=== PATIENT | male | born 1940 | race Caucasian/White ===

== ENCOUNTER 2020-12-06 18:24 | Inpatient (IN) ==
[2020-12-06] MEDS ORDERED: methylPREDNISolone 125 MG/2 ML VIAL IVP ONE (21:10)
[2020-12-06] MEDS ORDERED: Dextrose Gel 15 GM/37.5 ML TUBE PO PRN ×2 (21:11)
[2020-12-06] MEDS ORDERED: *HR* Dextrose 50 % in Water (Vial) 50 ML VIAL IVP PRN (21:11)
[2020-12-06] MEDS ORDERED: D5% in Water 1,000 ML IVC PRN (21:11)
[2020-12-06] MEDS ORDERED: Naloxone 0.4 MG/ML INJ IVP PRN (21:13)
[2020-12-06] MEDS ORDERED: Ondansetron 4 MG/2 ML VIAL IVP PRN (21:13)
[2020-12-06] MEDS: Insulin LISPRO 300 UNITS/3 ML VIAL SUBQ SCH (21:50)
[2020-12-06] MEDS: Metoprolol XL (24 HR) Succ 50 MG TAB.ER.24H PO SCH (21:51)
[2020-12-06 22:28] LABS: Estimated Average Glucose 217 mg/dl; Hemoglobin A1C 9.2 %
[2020-12-06] MEDS: Furosemide 40 MG/4 ML VIAL IVP SCH (22:42)
[2020-12-06] MEDS: Levalbuterol Neb 1.25 MG/3 ML IH SCH (22:59)
[2020-12-07] MEDS ORDERED: Albuterol 2.5 MG/3 ML NEBULIZER IH SCH
[2020-12-07] MEDS: Ipratropium Neb 0.5 MG NEBULIZER IH SCH ×4 (03:24→22:03)
[2020-12-07] MEDS: Levalbuterol Neb 1.25 MG/3 ML IH SCH ×4 (03:24→22:03)
[2020-12-07 03:37] LABS: Basophils % 0.2 %; Hematocrit 36.7 % (37.5-50.1); Hemoglobin 11.6 g/dL (12.9-16.9); Immature Granulocytes % 0.7 % (0-4); Lymphocytes # 0.3 K/mcL (0.6-4.6); Lymphocytes % 2.1 %; Mean Corpuscular HGB Conc 31.6 g/dL (31.6-35.5); Mean Corpuscular Hemoglobin 29.1 pg (28.0-33.3); Mean Corpuscular Volume 92.2 fL (83.0-100.0); Mean Platelet Volume 10.2 fL (9.4-12.4); Monocytes # 0.2 K/mcL (0.0-1.3); Monocytes % 1.2 %; Neutrophils # 14.3 K/mcL (1.6-8.9); Platelet Count 315 K/mcL (140-400); Red Blood Count 3.98 M/mcL (4.19-5.50); Red Cell Distribution Width 15.4 % (11.5-14.5); Segmented Neutrophils % 95.8 %; White Blood Count 14.9 K/mcL (4.3-11.1)
[2020-12-07 03:51] LABS: Alanine Aminotransferase 16 Units/L (7-52); Albumin 3.8 g/dL (3.5-5.7); Albumin/Globulin Ratio 1.4 (1.1-2.2); Alkaline Phosphatase 91 Units/L (34-104); Aspartate Amino Transferase 12 Units/L (13-39); BUN/Creatinine Ratio 25 (6-26); Bilirubin,Total 0.5 mg/dL (0.3-1.0); Blood Urea Nitrogen 29 mg/dL (8-23); Calcium 8.9 mg/dL (8.6-10.3); Carbon Dioxide 27 mEq/L (23-29); Chloride 104 mEq/L (98-107); Globulin 2.7 g/dL (2.4-3.5); Glucose 281 mg/dL (70-105); Osmolality,Calculated 308 (280-300); Potassium 4.3 mEq/L (3.5-5.1); Sodium 141 mEq/L (136-145); Total Protein 6.5 g/dL (6.4-8.9); eGFR For African Americans > 60 (> 60); eGFR For Non-African Americans > 60 (> 60)
[2020-12-07] MEDS: *HR* Heparin 5,000 UNIT/ML VIAL SQ SCH ×2 (04:45→17:02)
[2020-12-07] MEDS: Azithromycin 250 MG TABLET PO SCH (08:05)
[2020-12-07] MEDS: lisinopriL 20 MG TABLET PO SCH (08:06)
[2020-12-07] MEDS: Metoprolol XL (24 HR) Succ 50 MG TAB.ER.24H PO SCH ×2 (08:06→21:24)
[2020-12-07] MEDS: Furosemide 40 MG/4 ML VIAL IVP SCH ×2 (08:06→17:02)
[2020-12-07] MEDS: predniSONE 20 MG TABLET PO SCH (08:06)
[2020-12-07] MEDS: *HR* Digoxin 0.125 MG TABLET PO SCH (08:06)
[2020-12-07] MEDS: Insulin LISPRO 300 UNITS/3 ML VIAL SUBQ SCH ×4 (08:07→21:24)
[2020-12-07] MEDS ORDERED: BuPROPion XL (24 HR) 150 MG TABLET PO SCH (09:00)
[2020-12-08 01:59] LABS: BUN/Creatinine Ratio 33 (6-26); Blood Urea Nitrogen 41 mg/dL (8-23); Calcium 8.4 mg/dL (8.6-10.3); Carbon Dioxide 28 mEq/L (23-29); Chloride 102 mEq/L (98-107); Glucose 366 mg/dL (70-105); Magnesium 1.8 mg/dL (1.6-2.6); Osmolality,Calculated 309 (280-300); Sodium 137 mEq/L (136-145); eGFR For African Americans > 60 (> 60); eGFR For Non-African Americans 57 (> 60)
[2020-12-08] MEDS: Ipratropium Neb 0.5 MG NEBULIZER IH SCH ×4 (04:13→21:15)
[2020-12-08] MEDS: Levalbuterol Neb 1.25 MG/3 ML IH SCH ×4 (04:13→21:16)
[2020-12-08] MEDS: *HR* Heparin 5,000 UNIT/ML VIAL SQ SCH (05:28)
[2020-12-08] MEDS: Furosemide 40 MG/4 ML VIAL IVP SCH ×2 (08:36→16:55)
[2020-12-08] MEDS: Azithromycin 250 MG TABLET PO SCH (08:36)
[2020-12-08] MEDS: predniSONE 20 MG TABLET PO SCH (08:36)
[2020-12-08] MEDS: Metoprolol XL (24 HR) Succ 50 MG TAB.ER.24H PO SCH (08:36)
[2020-12-08] MEDS: lisinopriL 20 MG TABLET PO SCH (08:36)
[2020-12-08] MEDS: *HR* Digoxin 0.125 MG TABLET PO SCH (08:36)
[2020-12-08] MEDS: Insulin LISPRO 300 UNITS/3 ML VIAL SUBQ SCH ×4 (08:37→21:49)
[2020-12-08 09:35] LABS: Basophils % 0.1 %; Eosinophils % 0.1 %; Hematocrit 38.3 % (37.5-50.1); Hemoglobin 11.7 g/dL (12.9-16.9); Immature Granulocytes % 0.5 % (0-4); Lymphocytes # 0.9 K/mcL (0.6-4.6); Lymphocytes % 5.1 %; Mean Corpuscular HGB Conc 30.5 g/dL (31.6-35.5); Mean Corpuscular Hemoglobin 28.7 pg (28.0-33.3); Mean Corpuscular Volume 93.9 fL (83.0-100.0); Mean Platelet Volume 10.4 fL (9.4-12.4); Monocytes # 1.4 K/mcL (0.0-1.3); Monocytes % 7.7 %; Neutrophils # 15.1 K/mcL (1.6-8.9); Platelet Count 336 K/mcL (140-400); Red Blood Count 4.08 M/mcL (4.19-5.50); Red Cell Distribution Width 15.6 % (11.5-14.5); Segmented Neutrophils % 86.5 %; White Blood Count 17.5 K/mcL (4.3-11.1)
[2020-12-08] MEDS: DilTIAZem CD (24hr) 180 MG CAP.ER.24H PO SCH (14:56)
[2020-12-08] MEDS ORDERED: Metoprolol XL (24 HR) Succ 50 MG TAB.ER.24H PO SCH (21:00)
[2020-12-08] MEDS: Melatonin 3 MG TABLET PO SCH (21:45)
[2020-12-08] MEDS: Carbidopa/Levodopa ER 50/200 TABLET PO SCH (21:46)
[2020-12-08] MEDS: Insulin DETEMIR 100 UNIT/ML X5UNITS SUBQ SCH (21:49)
[2020-12-09 03:13] LABS: Basophils % 0.1 %; Eosinophils % 0.1 %; Hematocrit 37.5 % (37.5-50.1); Hemoglobin 11.6 g/dL (12.9-16.9); Immature Granulocytes % 0.6 % (0-4); Lymphocytes # 1.1 K/mcL (0.6-4.6); Lymphocytes % 6.8 %; Mean Corpuscular HGB Conc 30.9 g/dL (31.6-35.5); Mean Corpuscular Volume 93.8 fL (83.0-100.0); Mean Platelet Volume 10.5 fL (9.4-12.4); Monocytes # 1.5 K/mcL (0.0-1.3); Monocytes % 9.7 %; Neutrophils # 12.9 K/mcL (1.6-8.9); Platelet Count 322 K/mcL (140-400); Red Cell Distribution Width 15.4 % (11.5-14.5); Segmented Neutrophils % 82.7 %; White Blood Count 15.6 K/mcL (4.3-11.1)
[2020-12-09 03:38] LABS: Calcium 8.6 mg/dL (8.6-10.3); Potassium 4.1 mEq/L (3.5-5.1)
[2020-12-09] MEDS: Levalbuterol Neb 1.25 MG/3 ML IH SCH ×4 (03:49→20:07)
[2020-12-09] MEDS: Ipratropium Neb 0.5 MG NEBULIZER IH SCH ×5 (03:49→22:53)
[2020-12-09] MEDS: Insulin LISPRO 300 UNITS/3 ML VIAL SUBQ SCH ×4 (08:03→23:16)
[2020-12-09] MEDS: Furosemide 40 MG TABLET PO SCH ×2 (08:04→16:42)
[2020-12-09] MEDS ORDERED: *HR* Rivaroxaban 10 MG TABLET PO SCH (09:00)
[2020-12-09] MEDS ORDERED: Metoprolol XL (24 HR) Succ 50 MG TAB.ER.24H PO SCH (09:00)
[2020-12-09] MEDS: FLUoxetine 20 MG CAPSULE PO SCH (10:28)
[2020-12-09] MEDS: Carbidopa/Levodopa ER 50/200 TABLET PO SCH ×2 (10:29→23:16)
[2020-12-09] MEDS: predniSONE 20 MG TABLET PO SCH (10:29)
[2020-12-09] MEDS: Azithromycin 250 MG TABLET PO SCH (10:29)
[2020-12-09] MEDS: lisinopriL 20 MG TABLET PO SCH (10:29)
[2020-12-09] MEDS: Cholecalciferol (D-3) 1,000 UNIT (25MCG) TABLET PO SCH (10:29)
[2020-12-09] MEDS: DilTIAZem CD (24hr) 180 MG CAP.ER.24H PO SCH (10:31)
[2020-12-09] MEDS: *HR* Digoxin 0.125 MG TABLET PO SCH (10:31)
[2020-12-09] MEDS: Metoprolol XL (24 HR) Succ 50 MG TAB.ER.24H PO SCH (23:15)
[2020-12-09] MEDS: Insulin DETEMIR 100 UNIT/ML X5UNITS SUBQ SCH (23:16)
[2020-12-09] MEDS: Melatonin 3 MG TABLET PO SCH (23:19)
[2020-12-10] MEDS: Ipratropium Neb 0.5 MG NEBULIZER IH SCH ×3 (03:56→11:34)
[2020-12-10] MEDS: Levalbuterol Neb 1.25 MG/3 ML IH SCH ×2 (03:56→11:34)
[2020-12-10 06:01] LABS: Basophils % 0.2 %; Eosinophils # 0.1 K/mcL (0.0-0.6); Eosinophils % 0.5 %; Hematocrit 34.5 % (37.5-50.1); Hemoglobin 10.7 g/dL (12.9-16.9); Immature Granulocytes % 0.6 % (0-4); Lymphocytes # 0.9 K/mcL (0.6-4.6); Lymphocytes % 7.2 %; Mean Corpuscular Hemoglobin 28.5 pg (28.0-33.3); Mean Corpuscular Volume 91.8 fL (83.0-100.0); Mean Platelet Volume 10.1 fL (9.4-12.4); Monocytes # 1.3 K/mcL (0.0-1.3); Monocytes % 10.2 %; Neutrophils # 10.6 K/mcL (1.6-8.9); Platelet Count 279 K/mcL (140-400); Red Blood Count 3.76 M/mcL (4.19-5.50); Red Cell Distribution Width 15.1 % (11.5-14.5); Segmented Neutrophils % 81.3 %
[2020-12-10 06:16] LABS: BUN/Creatinine Ratio 38 (6-26); Blood Urea Nitrogen 41 mg/dL (8-23); Calcium 8.3 mg/dL (8.6-10.3); Carbon Dioxide 31 mEq/L (23-29); Chloride 103 mEq/L (98-107); Glucose 241 mg/dL (70-105); Osmolality,Calculated 304 (280-300); Potassium 3.8 mEq/L (3.5-5.1); Sodium 138 mEq/L (136-145); eGFR For African Americans > 60 (> 60); eGFR For Non-African Americans > 60 (> 60)
[2020-12-10] MEDS: Azithromycin 250 MG TABLET PO SCH (08:45)
[2020-12-10] MEDS: Furosemide 40 MG TABLET PO SCH (08:45)
[2020-12-10] MEDS: lisinopriL 20 MG TABLET PO SCH (08:45)
[2020-12-10] MEDS: *HR* Digoxin 0.125 MG TABLET PO SCH (08:45)
[2020-12-10] MEDS: FLUoxetine 20 MG CAPSULE PO SCH (08:46)
[2020-12-10] MEDS: Metoprolol XL (24 HR) Succ 50 MG TAB.ER.24H PO SCH (08:46)
[2020-12-10] MEDS: DilTIAZem CD (24hr) 180 MG CAP.ER.24H PO SCH (08:46)
[2020-12-10] MEDS: predniSONE 20 MG TABLET PO SCH (08:46)
[2020-12-10] MEDS: Insulin LISPRO 300 UNITS/3 ML VIAL SUBQ SCH ×2 (08:46→11:45)
[2020-12-10] MEDS: Cholecalciferol (D-3) 1,000 UNIT (25MCG) TABLET PO SCH (08:46)
[2020-12-10] MEDS: Carbidopa/Levodopa ER 50/200 TABLET PO SCH (08:46)
[2020-12-10 11:03] VITALS: BP 141/88
[2020-12-10] MEDS ORDERED: *HR* Rivaroxaban 10 MG TABLET PO SCH (17:00)
== END 2020-12-10 14:23 | disposition home or self-care (01) | DRG 291 ==
LOC: 2ANU → SUATTDRO 19:42
PROVIDERS: ADMIT Internal Medicine; ATTEND Family Medicine

== ENCOUNTER 2021-11-19 06:24 | Inpatient (IN) ==
[2021-11-19] MEDS ORDERED: Naloxone 0.4 MG/ML INJ IVP PRN (12:08)
[2021-11-19] MEDS: Furosemide 40 MG/4 ML VIAL IVP SCH (13:00)
[2021-11-19] MEDS: DilTIAZem 50 MG/50 ML IV.SOLN IVC SCH ×2 (13:00→22:22)
[2021-11-19] MEDS ORDERED: Melatonin 3 MG TABLET PO PRN (14:18)
[2021-11-19] MEDS: DilTIAZem CD (24hr) 180 MG CAP.ER.24H PO SCH (14:33)
[2021-11-19] MEDS: Metoprolol XL (24 HR) Succ 50 MG TAB.ER.24H PO SCH ×3 (14:33→23:34)
[2021-11-19] MEDS: FLUoxetine 20 MG CAPSULE PO SCH (14:33)
[2021-11-19] MEDS: Insulin LISPRO 300 UNITS/3 ML VIAL SUBQ SCH ×2 (15:59→21:26)
[2021-11-19] MEDS: *HR* Rivaroxaban 10 MG TABLET PO SCH (15:59)
[2021-11-19] MEDS: Ipratropium/Albuterol Neb 3 ML IH SCH ×2 (16:10→19:42)
[2021-11-19] MEDS: Carbidopa/Levodopa ER 50/200 TABLET PO SCH (21:25)
[2021-11-20 03:02] LABS: Basophils # 0.1 K/mcL (0.0-0.2); Basophils % 0.3 %; Eosinophils # 0.2 K/mcL (0.0-0.6); Eosinophils % 1.5 %; Hematocrit 29.8 % (37.5-50.1); Hemoglobin 9.6 g/dL (12.9-16.9); Immature Granulocytes % 0.4 % (0-4); Lymphocytes # 0.8 K/mcL (0.6-4.6); Lymphocytes % 4.8 %; Mean Corpuscular HGB Conc 32.2 g/dL (31.6-35.5); Mean Corpuscular Hemoglobin 30.1 pg (28.0-33.3); Mean Corpuscular Volume 93.4 fL (83.0-100.0); Mean Platelet Volume 9.8 fL (9.4-12.4); Monocytes # 1.8 K/mcL (0.0-1.3); Monocytes % 11.6 %; Neutrophils # 12.9 K/mcL (1.6-8.9); Platelet Count 311 K/mcL (140-400); Red Blood Count 3.19 M/mcL (4.19-5.50); Red Cell Distribution Width 15.2 % (11.5-14.5); Segmented Neutrophils % 81.4 %; White Blood Count 15.9 K/mcL (4.3-11.1)
[2021-11-20 03:20] LABS: Calcium 8.5 mg/dL (8.6-10.3); Potassium 4.1 mEq/L (3.5-5.1)
[2021-11-20] MEDS: Ipratropium/Albuterol Neb 3 ML IH SCH ×4 (03:25→20:16)
[2021-11-20] MEDS: Azithromycin 500 MG in 0.9 % Sodium Chloride 250 ML IVPB SCH (04:38)
[2021-11-20] MEDS: cefTRIAXone 2,000 MG in 0.9 % Sodium Chloride 20 ML IVP SCH (04:39)
[2021-11-20] MEDS ORDERED: 0.9 % Sodium Chloride 250 ML IVC ONE (07:38)
[2021-11-20] MEDS: Insulin LISPRO 300 UNITS/3 ML VIAL SUBQ SCH ×4 (07:44→20:33)
[2021-11-20] MEDS: DilTIAZem CD (24hr) 180 MG CAP.ER.24H PO SCH (07:56)
[2021-11-20] MEDS: Metoprolol XL (24 HR) Succ 50 MG TAB.ER.24H PO SCH ×2 (07:56→20:34)
[2021-11-20] MEDS: Carbidopa/Levodopa ER 50/200 TABLET PO SCH ×2 (07:56→20:34)
[2021-11-20] MEDS: FLUoxetine 20 MG CAPSULE PO SCH (07:56)
[2021-11-20] MEDS: Insulin DETEMIR 100 UNIT/ML X5UNITS SUBQ SCH (07:56)
[2021-11-20] MEDS: BuPROPion XL (24 HR) 150 MG TABLET PO SCH (07:56)
[2021-11-20] MEDS: Furosemide 40 MG/4 ML VIAL IVP SCH (07:57)
[2021-11-20] MEDS: Budesonide/Formoterol 160/4.5 1 PUFF INH IH SCH ×2 (10:14→20:16)
[2021-11-20] MEDS: *HR* Rivaroxaban 10 MG TABLET PO SCH (15:57)
[2021-11-21 02:35] LABS: Basophils # 0.1 K/mcL (0.0-0.2); Basophils % 0.4 %; Eosinophils # 0.5 K/mcL (0.0-0.6); Eosinophils % 3.2 %; Hematocrit 29.6 % (37.5-50.1); Hemoglobin 9.5 g/dL (12.9-16.9); Immature Granulocytes % 0.5 % (0-4); Lymphocytes # 0.8 K/mcL (0.6-4.6); Lymphocytes % 4.8 %; Mean Corpuscular HGB Conc 32.1 g/dL (31.6-35.5); Mean Corpuscular Hemoglobin 30.1 pg (28.0-33.3); Mean Corpuscular Volume 93.7 fL (83.0-100.0); Mean Platelet Volume 10.1 fL (9.4-12.4); Monocytes # 1.6 K/mcL (0.0-1.3); Monocytes % 9.8 %; Neutrophils # 13.3 K/mcL (1.6-8.9); Platelet Count 337 K/mcL (140-400); Red Blood Count 3.16 M/mcL (4.19-5.50); Red Cell Distribution Width 14.9 % (11.5-14.5); Segmented Neutrophils % 81.3 %; White Blood Count 16.4 K/mcL (4.3-11.1)
[2021-11-21 02:55] LABS: Calcium 8.4 mg/dL (8.6-10.3); Potassium 3.9 mEq/L (3.5-5.1)
[2021-11-21] MEDS: Ipratropium/Albuterol Neb 3 ML IH SCH ×4 (04:11→20:17)
[2021-11-21] MEDS: cefTRIAXone 2,000 MG in 0.9 % Sodium Chloride 20 ML IVP SCH (06:41)
[2021-11-21] MEDS: Azithromycin 500 MG in 0.9 % Sodium Chloride 250 ML IVPB SCH (06:43)
[2021-11-21] MEDS: Budesonide/Formoterol 160/4.5 1 PUFF INH IH SCH ×2 (07:51→20:17)
[2021-11-21] MEDS: Insulin DETEMIR 100 UNIT/ML X5UNITS SUBQ SCH (08:25)
[2021-11-21] MEDS: Metoprolol XL (24 HR) Succ 50 MG TAB.ER.24H PO SCH ×2 (08:26→20:12)
[2021-11-21] MEDS: BuPROPion XL (24 HR) 150 MG TABLET PO SCH (08:26)
[2021-11-21] MEDS: FLUoxetine 20 MG CAPSULE PO SCH (08:26)
[2021-11-21] MEDS: DilTIAZem CD (24hr) 180 MG CAP.ER.24H PO SCH (08:26)
[2021-11-21] MEDS: Insulin LISPRO 300 UNITS/3 ML VIAL SUBQ SCH ×4 (08:27→20:15)
[2021-11-21] MEDS: Carbidopa/Levodopa ER 50/200 TABLET PO SCH ×2 (08:27→20:11)
[2021-11-21] MEDS: Furosemide 40 MG/4 ML VIAL IVP SCH (08:45)
[2021-11-21] MEDS ORDERED: Budesonide/Formoterol 160/4.5 1 PUFF INH IH PRN (10:55)
[2021-11-21] MEDS: predniSONE 20 MG TABLET PO SCH (11:54)
[2021-11-21] MEDS: DilTIAZem 50 MG/50 ML IV.SOLN IVC SCH (11:55)
[2021-11-21] MEDS ORDERED: Perflutren Lipid Microsphere 1.3 ML in 0.9 % Sodium Chloride 8.7 ML IVP PRN (14:05)
[2021-11-21] MEDS: *HR* Rivaroxaban 10 MG TABLET PO SCH (16:40)
[2021-11-22 01:04] LABS: Basophils % 0.1 %; Eosinophils % 0.1 %; Hematocrit 28.1 % (37.5-50.1); Hemoglobin 9.2 g/dL (12.9-16.9); Immature Granulocytes % 0.8 % (0-4); Lymphocytes # 0.5 K/mcL (0.6-4.6); Lymphocytes % 3.3 %; Mean Corpuscular HGB Conc 32.7 g/dL (31.6-35.5); Mean Corpuscular Hemoglobin 30.4 pg (28.0-33.3); Mean Corpuscular Volume 92.7 fL (83.0-100.0); Monocytes % 7.4 %; Neutrophils # 11.9 K/mcL (1.6-8.9); Platelet Count 355 K/mcL (140-400); Red Blood Count 3.03 M/mcL (4.19-5.50); Red Cell Distribution Width 14.7 % (11.5-14.5); Segmented Neutrophils % 88.3 %; White Blood Count 13.5 K/mcL (4.3-11.1)
[2021-11-22 01:22] LABS: Calcium 8.7 mg/dL (8.6-10.3); Potassium 4.4 mEq/L (3.5-5.1)
[2021-11-22] MEDS: Ipratropium/Albuterol Neb 3 ML IH SCH ×4 (03:41→20:11)
[2021-11-22] MEDS: cefTRIAXone 2,000 MG in 0.9 % Sodium Chloride 20 ML IVP SCH (04:42)
[2021-11-22] MEDS: Azithromycin 500 MG in 0.9 % Sodium Chloride 250 ML IVPB SCH (04:43)
[2021-11-22] MEDS: Carbidopa/Levodopa ER 50/200 TABLET PO SCH ×2 (08:00→20:12)
[2021-11-22] MEDS: Furosemide 40 MG/4 ML VIAL IVP SCH (08:00)
[2021-11-22] MEDS: BuPROPion XL (24 HR) 150 MG TABLET PO SCH (08:00)
[2021-11-22] MEDS: DilTIAZem CD (24hr) 180 MG CAP.ER.24H PO SCH (08:00)
[2021-11-22] MEDS: FLUoxetine 20 MG CAPSULE PO SCH (08:00)
[2021-11-22] MEDS: predniSONE 20 MG TABLET PO SCH (08:00)
[2021-11-22] MEDS: Insulin LISPRO 300 UNITS/3 ML VIAL SUBQ SCH ×4 (08:01→20:11)
[2021-11-22] MEDS: Insulin DETEMIR 100 UNIT/ML X5UNITS SUBQ SCH (08:03)
[2021-11-22] MEDS: Metoprolol XL (24 HR) Succ 50 MG TAB.ER.24H PO SCH ×2 (09:50→20:12)
[2021-11-22] MEDS: Budesonide/Formoterol 160/4.5 1 PUFF INH IH SCH ×2 (10:39→20:11)
[2021-11-22] MEDS: *HR* Rivaroxaban 10 MG TABLET PO SCH (16:16)
[2021-11-23] MEDS: Ipratropium/Albuterol Neb 3 ML IH SCH ×4 (04:08→20:30)
[2021-11-23] MEDS: Azithromycin 500 MG in 0.9 % Sodium Chloride 250 ML IVPB SCH (04:38)
[2021-11-23] MEDS: cefTRIAXone 2,000 MG in 0.9 % Sodium Chloride 20 ML IVP SCH (04:39)
[2021-11-23] MEDS: DilTIAZem CD (24hr) 180 MG CAP.ER.24H PO SCH (08:22)
[2021-11-23] MEDS: FLUoxetine 20 MG CAPSULE PO SCH (08:22)
[2021-11-23] MEDS: Metoprolol XL (24 HR) Succ 50 MG TAB.ER.24H PO SCH ×2 (08:22→20:51)
[2021-11-23] MEDS: Furosemide 40 MG/4 ML VIAL IVP SCH (08:22)
[2021-11-23] MEDS: Carbidopa/Levodopa ER 50/200 TABLET PO SCH ×2 (08:23→20:51)
[2021-11-23] MEDS: BuPROPion XL (24 HR) 150 MG TABLET PO SCH (08:23)
[2021-11-23] MEDS: Insulin DETEMIR 100 UNIT/ML X5UNITS SUBQ SCH (08:23)
[2021-11-23] MEDS: predniSONE 20 MG TABLET PO SCH (08:23)
[2021-11-23] MEDS: Insulin LISPRO 300 UNITS/3 ML VIAL SUBQ SCH ×4 (08:24→20:52)
[2021-11-23] MEDS: Budesonide/Formoterol 160/4.5 1 PUFF INH IH SCH ×2 (09:41→20:30)
[2021-11-23] MEDS: *HR* Rivaroxaban 10 MG TABLET PO SCH (16:44)
[2021-11-24] MEDS: Ipratropium/Albuterol Neb 3 ML IH SCH ×2 (04:10→10:22)
[2021-11-24] MEDS: Azithromycin 500 MG in 0.9 % Sodium Chloride 250 ML IVPB SCH (05:03)
[2021-11-24] MEDS: cefTRIAXone 2,000 MG in 0.9 % Sodium Chloride 20 ML IVP SCH (05:03)
[2021-11-24] MEDS: Insulin LISPRO 300 UNITS/3 ML VIAL SUBQ SCH ×2 (07:40→11:45)
[2021-11-24 08:05] LABS: BUN/Creatinine Ratio 24 (6-26); Blood Urea Nitrogen 32 mg/dL (8-23); Calcium 8.7 mg/dL (8.6-10.3); Carbon Dioxide 29 mEq/L (23-29); Chloride 105 mEq/L (98-107); Glucose 117 mg/dL (70-105); Osmolality,Calculated 300 (280-300); Potassium 3.9 mEq/L (3.5-5.1); Sodium 141 mEq/L (136-145); eGFR For African Americans > 60 (> 60); eGFR For Non-African Americans 51 (> 60)
[2021-11-24] MEDS: Metoprolol XL (24 HR) Succ 50 MG TAB.ER.24H PO SCH (08:16)
[2021-11-24] MEDS: DilTIAZem CD (24hr) 180 MG CAP.ER.24H PO SCH (08:16)
[2021-11-24] MEDS: BuPROPion XL (24 HR) 150 MG TABLET PO SCH (08:16)
[2021-11-24] MEDS: Carbidopa/Levodopa ER 50/200 TABLET PO SCH (08:16)
[2021-11-24] MEDS: predniSONE 20 MG TABLET PO SCH (08:16)
[2021-11-24] MEDS: FLUoxetine 20 MG CAPSULE PO SCH (08:16)
[2021-11-24] MEDS: Furosemide 40 MG/4 ML VIAL IVP SCH (08:16)
[2021-11-24 08:54] LABS: Mean Platelet Volume 10.2 fL (9.4-12.4); Red Cell Distribution Width 14.7 % (11.5-14.5)
[2021-11-24 08:57] LABS: Basophils % 0.2 %; Eosinophils # 0.2 K/mcL (0.0-0.6); Hemoglobin 9.5 g/dL (12.9-16.9); Immature Granulocytes % 0.7 % (0-4); Lymphocytes % 5.2 %; Mean Corpuscular HGB Conc 31.7 g/dL (31.6-35.5); Mean Corpuscular Hemoglobin 29.9 pg (28.0-33.3); Mean Corpuscular Volume 94.3 fL (83.0-100.0); Monocytes # 2.1 K/mcL (0.0-1.3); Monocytes % 10.9 %; Neutrophils # 15.8 K/mcL (1.6-8.9); Platelet Count 385 K/mcL (140-400); Red Blood Count 3.18 M/mcL (4.19-5.50); White Blood Count 19.3 K/mcL (4.3-11.1)
[2021-11-24 09:17] VITALS: O2SAT 93
[2021-11-24] MEDS: Insulin DETEMIR 100 UNIT/ML X5UNITS SUBQ SCH (09:17)
[2021-11-24] MEDS: Budesonide/Formoterol 160/4.5 1 PUFF INH IH SCH (10:23)
[2021-11-24 11:13] VITALS: BP 138/90; PULSE 105; TEMP 97.6
== END 2021-11-24 15:29 | disposition home or self-care (01) | DRG 871 ==
LOC: 2NENU → SUATTDRO 12:44
PROVIDERS: ADMIT Family Medicine; ATTEND Internal Medicine

== ENCOUNTER 2022-02-24 17:44 | Inpatient (IN) ==
[2022-02-24 19:22] LABS: Basophils % 0.2 %; Eosinophils # 0.2 K/mcL (0.0-0.6); Eosinophils % 1.8 %; Hematocrit 32.7 % (37.5-50.1); Hemoglobin 10.1 g/dL (12.9-16.9); Immature Granulocytes % 0.3 % (0-4); Lymphocytes % 8.3 %; Mean Corpuscular HGB Conc 30.9 g/dL (31.6-35.5); Mean Corpuscular Hemoglobin 28.2 pg (28.0-33.3); Mean Corpuscular Volume 91.3 fL (83.0-100.0); Monocytes # 1.4 K/mcL (0.0-1.3); Monocytes % 10.7 %; Neutrophils # 9.9 K/mcL (1.6-8.9); Platelet Count 399 K/mcL (140-400); Red Blood Count 3.58 M/mcL (4.19-5.50); Red Cell Distribution Width 14.1 % (11.5-14.5); Segmented Neutrophils % 78.7 %; White Blood Count 12.6 K/mcL (4.3-11.1)
[2022-02-24 19:30] LABS: Albumin 3.4 g/dL (3.5-5.7); Albumin/Globulin Ratio 1.3 (1.1-2.2); Bilirubin,Direct 0.1 mg/dL (0.0-0.2); Bilirubin,Indirect 0.4 mg/dL (0.0-1.0); Bilirubin,Total 0.5 mg/dL (0.3-1.0); Globulin 2.7 g/dL (2.4-3.5); Total Protein 6.1 g/dL (6.4-8.9)
[2022-02-24 20:10] LABS: Influenza A PCR Negative (Negative); Influenza B PCR Negative (Negative); Resp. Syncytial Virus PCR Negative (Negative)
[2022-02-24] MEDS ORDERED: cefTRIAXone 1,000 MG in 0.9 % Sodium Chloride Mini Bag 100 ML IVPB ONE (20:22)
[2022-02-24 21:26] LABS: SARS-CoV-2 by PCR (In House) Negative (Negative)
[2022-02-24] MEDS ORDERED: Naloxone 0.4 MG/ML INJ IVP PRN (22:30)
[2022-02-24] MEDS ORDERED: *HR* OxyCODONE Immed Rel 5 MG TABLET PO PRN (22:49)
[2022-02-24] MEDS ORDERED: Acetaminophen 325 MG TABLET PO PRN (22:49)
[2022-02-24] MEDS ORDERED: Melatonin 3 MG TABLET PO PRN (22:49)
[2022-02-24] MEDS ORDERED: *HR* HYDROcodone/Acet 5/325 mg TABLET PO PRN (22:49)
[2022-02-24] MEDS ORDERED: Ondansetron 4 MG/2 ML VIAL IVP PRN (22:49)
[2022-02-24 22:52] LABS: INR 1.6; Prothrombin Time 17.3 Seconds (9.4-12.1)
[2022-02-24 22:54] LABS: Activated Partial Thrombo Time 31.6 Seconds (26.0-36.0)
[2022-02-24] MEDS ORDERED: Ipratropium/Albuterol Neb 3 ML IH PRN (23:02)
[2022-02-24 23:03] LABS: Bilirubin,Urine Negative (Negative); Blood,Urine Negative (Negative); Calcium Oxalate Crystals,Urine Present per hpf; Clarity,Urine Clear (Clear); Color,Urine Yellow (Yellow); Glucose,Urine (UA) Normal (Normal); Hyaline Casts,Urine Few per lpf (None Seen); Ketones,Urine Negative (Negative); Leukocyte Esterase,Urine Negative (Negative); Nitrite,Urine Negative (Negative); PH,Urine 6.5 pH Units (5.0-8.0); Protein,Urine 30 mg/dL (Neg-Trace); RBC,Urine 0-3 per hpf (0-3); Specific Gravity,Urine 1.025 (1.010-1.025); Urobilinogen,Urine Normal (Normal); WBC,Urine 0-3 per hpf (0-3)
[2022-02-24 23:18] LABS: Adenovirus Not Detected (Not Detect); Bordetella Pertussis Not Detected (Not Detect); Chlamydophila pneumoniae Not Detected (Not Detect); Coronavirus 229E Not Detected (Not Detect); Coronavirus HKU1 Not Detected (Not Detect); Coronavirus NL63 Not Detected (Not Detect); Coronavirus OC43 Not Detected (Not Detect); Human Metapneumovirus Not Detected (Not Detect); Human Rhinovirus/Enterovirus Not Detected (Not Detect); Influenza A Subtype 2009 H1 Not Detected (Not Detect); Influenza B Not Detected (Not Detect); Mycoplasma pneumoniae Not Detected (Not Detect); Parainfluenza Virus 1 Not Detected (Not Detect); Parainfluenza Virus 2 Not Detected (Not Detect); Parainfluenza Virus 3 Not Detected (Not Detect); Parainfluenza Virus 4 Not Detected (Not Detect); Respiratory Syncytial Virus Not Detected (Not Detect); SARS-CoV-2 Not Detected (Not Detect)
[2022-02-24] MEDS: Azithromycin 500 MG in 0.9 % Sodium Chloride 250 ML IVPB SCH (23:44)
[2022-02-24] MEDS: Cefepime HCl 2,000 MG in 0.9 % Sodium Chloride 10 ML IVP SCH (23:44)
[2022-02-25 02:13] LABS: Basophils % 0.3 %; Eosinophils # 0.4 K/mcL (0.0-0.6); Hematocrit 33.5 % (37.5-50.1); Hemoglobin 10.3 g/dL (12.9-16.9); Immature Granulocytes % 0.4 % (0-4); Lymphocytes # 1.2 K/mcL (0.6-4.6); Lymphocytes % 9.9 %; Mean Corpuscular HGB Conc 30.7 g/dL (31.6-35.5); Mean Corpuscular Hemoglobin 28.5 pg (28.0-33.3); Mean Corpuscular Volume 92.8 fL (83.0-100.0); Monocytes # 1.2 K/mcL (0.0-1.3); Monocytes % 10.3 %; Platelet Count 373 K/mcL (140-400); Red Blood Count 3.61 M/mcL (4.19-5.50); Segmented Neutrophils % 76.1 %; White Blood Count 11.9 K/mcL (4.3-11.1)
[2022-02-25 02:35] LABS: Calcium 8.5 mg/dL (8.6-10.3); Potassium 3.8 mEq/L (3.5-5.1)
[2022-02-25] MEDS ORDERED: Furosemide 40 MG/4 ML VIAL IVP SCH (08:00)
[2022-02-25] MEDS ORDERED: *HR* Dextrose 50 % in Water (Syg) 50 ML SYRINGE IVP PRN (08:39)
[2022-02-25] MEDS ORDERED: Dextrose Gel 15 GM/37.5 ML TUBE PO PRN ×2 (08:39)
[2022-02-25] MEDS ORDERED: D5% in Water 1,000 ML IVC PRN (08:39)
[2022-02-25] MEDS: Furosemide 40 MG/4 ML VIAL IVP SCH (08:55)
[2022-02-25] MEDS: Insulin LISPRO 300 UNITS/3 ML VIAL SUBQ SCH ×2 (11:57→16:31)
[2022-02-25] MEDS: Cefepime HCl 2,000 MG in 0.9 % Sodium Chloride 10 ML IVP SCH ×2 (11:57→23:05)
[2022-02-25] MEDS: DilTIAZem CD (24hr) 180 MG CAP.ER.24H PO SCH (14:12)
[2022-02-25] MEDS: Metoprolol XL (24 HR) Succ 50 MG TAB.ER.24H PO SCH ×2 (14:12→20:05)
[2022-02-25] MEDS: Carbidopa/Levodopa ER 50/200 TABLET PO SCH (20:05)
[2022-02-25] MEDS: Insulin DETEMIR 100 UNIT/ML X5UNITS SUBQ SCH (20:13)
[2022-02-25] MEDS: Azithromycin 500 MG in 0.9 % Sodium Chloride 250 ML IVPB SCH (23:06)
[2022-02-25] MEDS: *HR* Heparin 5,000 UNIT/ML VIAL SQ SCH (23:06)
[2022-02-26 02:35] LABS: Basophils # 0.1 K/mcL (0.0-0.2); Basophils % 0.4 %; Eosinophils # 0.4 K/mcL (0.0-0.6); Eosinophils % 3.5 %; Hematocrit 30.8 % (37.5-50.1); Hemoglobin 9.7 g/dL (12.9-16.9); Immature Granulocytes % 0.4 % (0-4); Lymphocytes # 1.4 K/mcL (0.6-4.6); Lymphocytes % 11.9 %; Mean Corpuscular HGB Conc 31.5 g/dL (31.6-35.5); Mean Corpuscular Hemoglobin 28.9 pg (28.0-33.3); Mean Corpuscular Volume 91.7 fL (83.0-100.0); Mean Platelet Volume 9.6 fL (9.4-12.4); Monocytes # 1.4 K/mcL (0.0-1.3); Monocytes % 11.9 %; Neutrophils # 8.2 K/mcL (1.6-8.9); Platelet Count 357 K/mcL (140-400); Red Blood Count 3.36 M/mcL (4.19-5.50); Red Cell Distribution Width 14.1 % (11.5-14.5); Segmented Neutrophils % 71.9 %; White Blood Count 11.3 K/mcL (4.3-11.1)
[2022-02-26 02:55] LABS: Calcium 8.4 mg/dL (8.6-10.3); Potassium 3.5 mEq/L (3.5-5.1)
[2022-02-26] MEDS: *HR* Heparin 5,000 UNIT/ML VIAL SQ SCH ×3 (05:22→21:39)
[2022-02-26] MEDS: Insulin LISPRO 300 UNITS/3 ML VIAL SUBQ SCH ×3 (07:57→16:00)
[2022-02-26] MEDS: DilTIAZem CD (24hr) 180 MG CAP.ER.24H PO SCH (08:09)
[2022-02-26] MEDS: Carbidopa/Levodopa ER 50/200 TABLET PO SCH ×2 (08:09→21:40)
[2022-02-26] MEDS: BuPROPion XL (24 HR) 150 MG TABLET PO SCH (08:09)
[2022-02-26] MEDS: Furosemide 40 MG/4 ML VIAL IVP SCH (08:09)
[2022-02-26] MEDS: Metoprolol XL (24 HR) Succ 50 MG TAB.ER.24H PO SCH ×2 (08:09→21:39)
[2022-02-26] MEDS: Cefepime HCl 2,000 MG in 0.9 % Sodium Chloride 10 ML IVP SCH ×2 (12:53→23:55)
[2022-02-26] MEDS: FLUoxetine 20 MG CAPSULE PO SCH ×2 (16:00→21:40)
[2022-02-26] MEDS: Insulin DETEMIR 100 UNIT/ML X5UNITS SUBQ SCH (21:40)
[2022-02-26] MEDS: Azithromycin 500 MG in 0.9 % Sodium Chloride 250 ML IVPB SCH (23:55)
[2022-02-27 02:28] LABS: Basophils # 0.1 K/mcL (0.0-0.2); Basophils % 0.5 %; Eosinophils # 0.5 K/mcL (0.0-0.6); Eosinophils % 4.2 %; Hematocrit 31.5 % (37.5-50.1); Hemoglobin 9.8 g/dL (12.9-16.9); Immature Granulocytes % 0.4 % (0-4); Lymphocytes # 1.2 K/mcL (0.6-4.6); Lymphocytes % 10.8 %; Mean Corpuscular HGB Conc 31.1 g/dL (31.6-35.5); Mean Corpuscular Hemoglobin 28.4 pg (28.0-33.3); Mean Corpuscular Volume 91.3 fL (83.0-100.0); Mean Platelet Volume 10.1 fL (9.4-12.4); Monocytes # 1.3 K/mcL (0.0-1.3); Monocytes % 11.2 %; Neutrophils # 8.3 K/mcL (1.6-8.9); Platelet Count 383 K/mcL (140-400); Red Blood Count 3.45 M/mcL (4.19-5.50); Segmented Neutrophils % 72.9 %; White Blood Count 11.4 K/mcL (4.3-11.1)
[2022-02-27 02:39] LABS: BUN/Creatinine Ratio 15 (6-26); Blood Urea Nitrogen 25 mg/dL (8-23); Calcium 8.5 mg/dL (8.6-10.3); Carbon Dioxide 31 mEq/L (23-29); Chloride 103 mEq/L (98-107); Glucose 152 mg/dL (70-105); Lactate Dehydrogenase 143 Units/L (140-271); Osmolality,Calculated 295 (280-300); Sodium 139 mEq/L (136-145); Total Protein 5.4 g/dL (6.4-8.9); eGFR For African Americans 50 (> 60); eGFR For Non-African Americans 41 (> 60)
[2022-02-27] MEDS: *HR* Heparin 5,000 UNIT/ML VIAL SQ SCH (05:41)
[2022-02-27] MEDS: Metoprolol XL (24 HR) Succ 50 MG TAB.ER.24H PO SCH ×2 (07:31→22:34)
[2022-02-27] MEDS: BuPROPion XL (24 HR) 150 MG TABLET PO SCH (07:31)
[2022-02-27] MEDS: Furosemide 40 MG/4 ML VIAL IVP SCH (07:31)
[2022-02-27] MEDS: Carbidopa/Levodopa ER 50/200 TABLET PO SCH ×2 (07:31→22:34)
[2022-02-27] MEDS: DilTIAZem CD (24hr) 180 MG CAP.ER.24H PO SCH (07:31)
[2022-02-27] MEDS: FLUoxetine 20 MG CAPSULE PO SCH ×3 (07:31→22:34)
[2022-02-27] MEDS: Insulin LISPRO 300 UNITS/3 ML VIAL SUBQ SCH ×3 (07:32→16:32)
[2022-02-27] MEDS: Ascorbic Acid 500 MG TABLET PO SCH (07:34)
[2022-02-27] MEDS: Cefepime HCl 2,000 MG in 0.9 % Sodium Chloride 10 ML IVP SCH ×2 (11:52→23:47)
[2022-02-27] MEDS: Azithromycin 500 MG in 0.9 % Sodium Chloride 250 ML IVPB SCH (22:36)
[2022-02-27] MEDS: Insulin DETEMIR 100 UNIT/ML X5UNITS SUBQ SCH (22:41)
[2022-02-28 01:46] LABS: Basophils # 0.1 K/mcL (0.0-0.2); Basophils % 0.5 %; Eosinophils # 0.5 K/mcL (0.0-0.6); Eosinophils % 4.2 %; Hematocrit 30.7 % (37.5-50.1); Hemoglobin 9.6 g/dL (12.9-16.9); Immature Granulocytes % 0.4 % (0-4); Lymphocytes # 1.3 K/mcL (0.6-4.6); Mean Corpuscular HGB Conc 31.3 g/dL (31.6-35.5); Mean Corpuscular Hemoglobin 28.2 pg (28.0-33.3); Mean Corpuscular Volume 90.3 fL (83.0-100.0); Mean Platelet Volume 10.1 fL (9.4-12.4); Monocytes # 1.4 K/mcL (0.0-1.3); Monocytes % 11.2 %; Neutrophils # 9.5 K/mcL (1.6-8.9); Platelet Count 389 K/mcL (140-400); Red Cell Distribution Width 14.3 % (11.5-14.5); Segmented Neutrophils % 73.7 %; White Blood Count 12.9 K/mcL (4.3-11.1)
[2022-02-28 02:13] LABS: Calcium 8.8 mg/dL (8.6-10.3); Potassium 3.9 mEq/L (3.5-5.1)
[2022-02-28] MEDS: Insulin LISPRO 300 UNITS/3 ML VIAL SUBQ SCH ×3 (07:02→16:35)
[2022-02-28] MEDS: FLUoxetine 20 MG CAPSULE PO SCH ×3 (08:40→21:40)
[2022-02-28] MEDS: DilTIAZem CD (24hr) 180 MG CAP.ER.24H PO SCH (08:40)
[2022-02-28] MEDS: Ascorbic Acid 500 MG TABLET PO SCH (08:40)
[2022-02-28] MEDS: Metoprolol XL (24 HR) Succ 50 MG TAB.ER.24H PO SCH ×2 (08:40→21:40)
[2022-02-28] MEDS: BuPROPion XL (24 HR) 150 MG TABLET PO SCH (08:40)
[2022-02-28] MEDS: Carbidopa/Levodopa ER 50/200 TABLET PO SCH ×2 (08:40→21:39)
[2022-02-28] MEDS: Cefepime HCl 2,000 MG in 0.9 % Sodium Chloride 10 ML IVP SCH (13:09)
[2022-02-28] MEDS: Insulin DETEMIR 100 UNIT/ML X5UNITS SUBQ SCH (21:40)
[2022-03-01] MEDS: Cefepime HCl 2,000 MG in 0.9 % Sodium Chloride 10 ML IVP SCH ×2 (00:11→12:29)
[2022-03-01 06:09] LABS: Basophils # 0.1 K/mcL (0.0-0.2); Basophils % 0.5 %; Eosinophils # 0.4 K/mcL (0.0-0.6); Eosinophils % 3.9 %; Hematocrit 31.3 % (37.5-50.1); Hemoglobin 9.7 g/dL (12.9-16.9); Immature Granulocytes % 0.4 % (0-4); Lymphocytes # 1.2 K/mcL (0.6-4.6); Lymphocytes % 10.8 %; Mean Corpuscular Hemoglobin 28.1 pg (28.0-33.3); Mean Corpuscular Volume 90.7 fL (83.0-100.0); Mean Platelet Volume 10.2 fL (9.4-12.4); Monocytes # 1.4 K/mcL (0.0-1.3); Monocytes % 12.7 %; Neutrophils # 8.1 K/mcL (1.6-8.9); Platelet Count 380 K/mcL (140-400); Red Blood Count 3.45 M/mcL (4.19-5.50); Red Cell Distribution Width 14.2 % (11.5-14.5); Segmented Neutrophils % 71.7 %; White Blood Count 11.3 K/mcL (4.3-11.1)
[2022-03-01 06:23] LABS: Calcium 8.8 mg/dL (8.6-10.3); Potassium 3.7 mEq/L (3.5-5.1)
[2022-03-01] MEDS: Insulin LISPRO 300 UNITS/3 ML VIAL SUBQ SCH ×3 (07:33→16:16)
[2022-03-01] MEDS: Metoprolol XL (24 HR) Succ 50 MG TAB.ER.24H PO SCH ×2 (07:34→21:45)
[2022-03-01] MEDS: BuPROPion XL (24 HR) 150 MG TABLET PO SCH (07:34)
[2022-03-01] MEDS: FLUoxetine 20 MG CAPSULE PO SCH ×3 (07:34→21:46)
[2022-03-01] MEDS: Ascorbic Acid 500 MG TABLET PO SCH (07:34)
[2022-03-01] MEDS: DilTIAZem CD (24hr) 180 MG CAP.ER.24H PO SCH (07:34)
[2022-03-01] MEDS: Carbidopa/Levodopa ER 50/200 TABLET PO SCH ×2 (07:34→21:45)
[2022-03-01] MEDS: Insulin DETEMIR 100 UNIT/ML X5UNITS SUBQ SCH (21:45)
[2022-03-02] MEDS: Cefepime HCl 2,000 MG in 0.9 % Sodium Chloride 10 ML IVP SCH ×3 (00:06→23:51)
[2022-03-02] MEDS: FLUoxetine 20 MG CAPSULE PO SCH ×3 (07:22→19:57)
[2022-03-02] MEDS: Ascorbic Acid 500 MG TABLET PO SCH (07:22)
[2022-03-02] MEDS: Metoprolol XL (24 HR) Succ 50 MG TAB.ER.24H PO SCH ×2 (07:22→19:58)
[2022-03-02] MEDS: BuPROPion XL (24 HR) 150 MG TABLET PO SCH (07:22)
[2022-03-02] MEDS: DilTIAZem CD (24hr) 180 MG CAP.ER.24H PO SCH (07:22)
[2022-03-02] MEDS: Carbidopa/Levodopa ER 50/200 TABLET PO SCH ×2 (07:23→19:58)
[2022-03-02] MEDS: Insulin LISPRO 300 UNITS/3 ML VIAL SUBQ SCH ×3 (07:26→16:30)
[2022-03-02] MEDS: Insulin DETEMIR 100 UNIT/ML X5UNITS SUBQ SCH (19:58)
[2022-03-03] MEDS: Insulin LISPRO 300 UNITS/3 ML VIAL SUBQ SCH ×3 (07:15→17:31)
[2022-03-03] MEDS: Metoprolol XL (24 HR) Succ 50 MG TAB.ER.24H PO SCH ×2 (07:24→20:54)
[2022-03-03] MEDS: BuPROPion XL (24 HR) 150 MG TABLET PO SCH (07:24)
[2022-03-03] MEDS: FLUoxetine 20 MG CAPSULE PO SCH ×3 (07:24→20:54)
[2022-03-03] MEDS: Ascorbic Acid 500 MG TABLET PO SCH (07:24)
[2022-03-03] MEDS: DilTIAZem CD (24hr) 180 MG CAP.ER.24H PO SCH (07:24)
[2022-03-03] MEDS: Carbidopa/Levodopa ER 50/200 TABLET PO SCH ×2 (07:24→20:54)
[2022-03-03] MEDS: Cefepime HCl 2,000 MG in 0.9 % Sodium Chloride 10 ML IVP SCH (11:58)
[2022-03-03] MEDS: *HR* Rivaroxaban 10 MG TABLET PO SCH (15:52)
[2022-03-03] MEDS: Insulin DETEMIR 100 UNIT/ML X5UNITS SUBQ SCH (20:55)
[2022-03-04] MEDS: Insulin LISPRO 300 UNITS/3 ML VIAL SUBQ SCH ×3 (08:22→16:35)
[2022-03-04] MEDS: Metoprolol XL (24 HR) Succ 50 MG TAB.ER.24H PO SCH ×2 (08:23→20:39)
[2022-03-04] MEDS: Carbidopa/Levodopa ER 50/200 TABLET PO SCH ×2 (08:23→20:39)
[2022-03-04] MEDS: FLUoxetine 20 MG CAPSULE PO SCH ×3 (08:23→20:39)
[2022-03-04] MEDS: DilTIAZem CD (24hr) 180 MG CAP.ER.24H PO SCH (08:23)
[2022-03-04] MEDS: Ascorbic Acid 500 MG TABLET PO SCH (08:23)
[2022-03-04] MEDS: BuPROPion XL (24 HR) 150 MG TABLET PO SCH (08:23)
[2022-03-04] MEDS: *HR* Rivaroxaban 10 MG TABLET PO SCH (16:35)
[2022-03-04] MEDS: Insulin DETEMIR 100 UNIT/ML X5UNITS SUBQ SCH (20:39)
[2022-03-05] MEDS: Insulin LISPRO 300 UNITS/3 ML VIAL SUBQ SCH ×3 (08:44→16:59)
[2022-03-05] MEDS: BuPROPion XL (24 HR) 150 MG TABLET PO SCH (08:45)
[2022-03-05] MEDS: Ascorbic Acid 500 MG TABLET PO SCH (08:45)
[2022-03-05] MEDS: Carbidopa/Levodopa ER 50/200 TABLET PO SCH ×2 (08:45→22:31)
[2022-03-05] MEDS: Metoprolol XL (24 HR) Succ 50 MG TAB.ER.24H PO SCH ×2 (08:45→22:32)
[2022-03-05] MEDS: FLUoxetine 20 MG CAPSULE PO SCH ×3 (08:45→22:31)
[2022-03-05] MEDS: DilTIAZem CD (24hr) 180 MG CAP.ER.24H PO SCH (08:46)
[2022-03-05] MEDS: *HR* Rivaroxaban 10 MG TABLET PO SCH (16:59)
[2022-03-05] MEDS: Insulin DETEMIR 100 UNIT/ML X5UNITS SUBQ SCH (22:32)
[2022-03-06] MEDS: BuPROPion XL (24 HR) 150 MG TABLET PO SCH (07:27)
[2022-03-06] MEDS: DilTIAZem CD (24hr) 180 MG CAP.ER.24H PO SCH (07:27)
[2022-03-06] MEDS: Metoprolol XL (24 HR) Succ 50 MG TAB.ER.24H PO SCH ×2 (07:27→21:53)
[2022-03-06] MEDS: Ascorbic Acid 500 MG TABLET PO SCH (07:27)
[2022-03-06] MEDS: Carbidopa/Levodopa ER 50/200 TABLET PO SCH ×2 (07:28→21:54)
[2022-03-06] MEDS: Insulin LISPRO 300 UNITS/3 ML VIAL SUBQ SCH ×3 (07:28→16:42)
[2022-03-06] MEDS: FLUoxetine 20 MG CAPSULE PO SCH ×3 (07:28→21:54)
[2022-03-06] MEDS: *HR* Rivaroxaban 10 MG TABLET PO SCH (16:41)
[2022-03-06] MEDS: Insulin DETEMIR 100 UNIT/ML X5UNITS SUBQ SCH (21:54)
[2022-03-07] MEDS: FLUoxetine 20 MG CAPSULE PO SCH ×3 (07:41→20:06)
[2022-03-07] MEDS: Carbidopa/Levodopa ER 50/200 TABLET PO SCH ×2 (07:41→20:06)
[2022-03-07] MEDS: Ascorbic Acid 500 MG TABLET PO SCH (07:41)
[2022-03-07] MEDS: Metoprolol XL (24 HR) Succ 50 MG TAB.ER.24H PO SCH ×2 (07:41→20:06)
[2022-03-07] MEDS: DilTIAZem CD (24hr) 180 MG CAP.ER.24H PO SCH (07:41)
[2022-03-07] MEDS: Insulin LISPRO 300 UNITS/3 ML VIAL SUBQ SCH ×3 (07:42→16:38)
[2022-03-07] MEDS: BuPROPion XL (24 HR) 150 MG TABLET PO SCH (07:42)
[2022-03-07] MEDS: *HR* Rivaroxaban 10 MG TABLET PO SCH (16:38)
[2022-03-07] MEDS: Insulin DETEMIR 100 UNIT/ML X5UNITS SUBQ SCH (21:22)
[2022-03-08] MEDS: BuPROPion XL (24 HR) 150 MG TABLET PO SCH (07:55)
[2022-03-08] MEDS: Carbidopa/Levodopa ER 50/200 TABLET PO SCH ×2 (07:55→19:58)
[2022-03-08] MEDS: Metoprolol XL (24 HR) Succ 50 MG TAB.ER.24H PO SCH ×2 (07:55→19:58)
[2022-03-08] MEDS: FLUoxetine 20 MG CAPSULE PO SCH ×3 (07:55→19:58)
[2022-03-08] MEDS: DilTIAZem CD (24hr) 180 MG CAP.ER.24H PO SCH (07:55)
[2022-03-08] MEDS: Insulin LISPRO 300 UNITS/3 ML VIAL SUBQ SCH ×3 (07:56→17:00)
[2022-03-08] MEDS: Ascorbic Acid 500 MG TABLET PO SCH (07:56)
[2022-03-08] MEDS: MethylPREDNISolone 40 MG/ML VIAL IVP SCH (15:12)
[2022-03-08] MEDS: Ipratropium/Albuterol Neb 3 ML IH SCH ×3 (15:42→23:01)
[2022-03-08] MEDS: *HR* Rivaroxaban 10 MG TABLET PO SCH (17:01)
[2022-03-08] MEDS: Insulin DETEMIR 100 UNIT/ML X5UNITS SUBQ SCH (20:03)
[2022-03-09] MEDS: Ipratropium/Albuterol Neb 3 ML IH SCH ×4 (03:57→15:39)
[2022-03-09] MEDS: MethylPREDNISolone 40 MG/ML VIAL IVP SCH (05:27)
[2022-03-09] MEDS: BuPROPion XL (24 HR) 150 MG TABLET PO SCH (09:03)
[2022-03-09] MEDS: Ascorbic Acid 500 MG TABLET PO SCH (09:03)
[2022-03-09] MEDS: Carbidopa/Levodopa ER 50/200 TABLET PO SCH (09:03)
[2022-03-09] MEDS: Metoprolol XL (24 HR) Succ 50 MG TAB.ER.24H PO SCH (09:03)
[2022-03-09] MEDS: FLUoxetine 20 MG CAPSULE PO SCH ×2 (09:03→15:01)
[2022-03-09] MEDS: DilTIAZem CD (24hr) 180 MG CAP.ER.24H PO SCH (09:03)
[2022-03-09] MEDS: Insulin LISPRO 300 UNITS/3 ML VIAL SUBQ SCH ×3 (09:04→16:44)
[2022-03-09 10:04] LABS: Basophils % 0.2 %; Hematocrit 33.7 % (37.5-50.1); Hemoglobin 10.7 g/dL (12.9-16.9); Immature Granulocytes % 0.3 % (0-4); Lymphocytes # 0.5 K/mcL (0.6-4.6); Lymphocytes % 3.8 %; Mean Corpuscular HGB Conc 31.8 g/dL (31.6-35.5); Mean Corpuscular Hemoglobin 28.6 pg (28.0-33.3); Mean Corpuscular Volume 90.1 fL (83.0-100.0); Mean Platelet Volume 10.4 fL (9.4-12.4); Monocytes # 0.2 K/mcL (0.0-1.3); Monocytes % 1.7 %; Neutrophils # 11.4 K/mcL (1.6-8.9); Platelet Count 390 K/mcL (140-400); Red Blood Count 3.74 M/mcL (4.19-5.50); Red Cell Distribution Width 14.6 % (11.5-14.5); White Blood Count 12.1 K/mcL (4.3-11.1)
[2022-03-09 10:21] LABS: BUN/Creatinine Ratio 21 (6-26); Blood Urea Nitrogen 22 mg/dL (8-23); Calcium 9.3 mg/dL (8.6-10.3); Carbon Dioxide 28 mEq/L (23-29); Chloride 102 mEq/L (98-107); Glucose 238 mg/dL (70-105); Osmolality,Calculated 293 (280-300); Potassium 4.7 mEq/L (3.5-5.1); Sodium 136 mEq/L (136-145); eGFR For African Americans > 60 (> 60); eGFR For Non-African Americans > 60 (> 60)
[2022-03-09 15:49] VITALS: BP 125/78; PULSE 91; TEMP 97.9; O2SAT 99
[2022-03-09] MEDS: *HR* Rivaroxaban 10 MG TABLET PO SCH (16:46)
== END 2022-03-09 17:20 | DRG 193 ==
LOC: EMEROOARM 17:44 → 2ANU 17:44 → SUATTDRO 22:19 → 2ANU 23:04 → SUATTDRO 02-26 13:02
PROVIDERS: ADMIT Internal Medicine; ATTEND Family Medicine

== ENCOUNTER 2022-03-25 13:29 | Inpatient (IN) ==
[2022-03-25] MEDS ORDERED: Naloxone 0.4 MG/ML INJ IVP PRN (17:34)
[2022-03-25] MEDS ORDERED: MOM Conc 10 ML UD.LIQ PO PRN (17:34)
[2022-03-25] MEDS ORDERED: Melatonin 3 MG TABLET PO PRN (17:34)
[2022-03-25] MEDS ORDERED: Ondansetron ODT 4 MG TAB.RAPDIS SL PRN (17:34)
[2022-03-25] MEDS ORDERED: Mag Hydrox/Al Hydrox/Simeth 30 ML UDC PO PRN (17:34)
[2022-03-25] MEDS ORDERED: *HR* Dextrose 50 % in Water (Syg) 50 ML SYRINGE IVP PRN (17:37)
[2022-03-25] MEDS ORDERED: Dextrose Gel 15 GM/37.5 ML TUBE PO PRN ×2 (17:37)
[2022-03-25] MEDS ORDERED: D5% in Water 1,000 ML IVC PRN (17:37)
[2022-03-25] MEDS ORDERED: 0.9 % Sodium Chloride 1,000 ML IVC SCH (17:45)
[2022-03-25] MEDS ORDERED: *HR* OxyCODONE Immed Rel 5 MG TABLET PO PRN ×3 (17:52→23:44)
[2022-03-25] MEDS ORDERED: cefTRIAXone 1,000 MG in 0.9 % Sodium Chloride 10 ML IVP SCH (18:00)
[2022-03-25] MEDS: Insulin LISPRO 300 UNITS/3 ML VIAL SUBQ SCH (18:17)
[2022-03-25] MEDS ORDERED: Morphine Sulfate 2 MG/ML SYRINGE IVP ONE (19:31)
[2022-03-25] MEDS: Carbidopa/Levodopa ER 50/200 TABLET PO SCH (19:56)
[2022-03-25] MEDS: Metoprolol XL (24 HR) Succ 50 MG TAB.ER.24H PO SCH (19:56)
[2022-03-25] MEDS ORDERED: Insulin LISPRO 300 UNITS/3 ML VIAL SUBQ SCH (21:00)
[2022-03-26] MEDS ORDERED: *HR* Enoxaparin 40 MG/0.4 ML SYRINGE SQ SCH (06:00)
[2022-03-26 06:33] LABS: Alanine Aminotransferase < 3 Units/L (7-52); Albumin 2.9 g/dL (3.5-5.7); Albumin/Globulin Ratio 1.1 (1.1-2.2); Alkaline Phosphatase 71 Units/L (34-104); Aspartate Amino Transferase 16 Units/L (13-39); BUN/Creatinine Ratio 22 (6-26); Bilirubin,Total 0.4 mg/dL (0.3-1.0); Blood Urea Nitrogen 29 mg/dL (8-23); Carbon Dioxide 23 mEq/L (23-29); Chloride 106 mEq/L (98-107); Globulin 2.6 g/dL (2.4-3.5); Glucose 126 mg/dL (70-105); Osmolality,Calculated 293 (280-300); Potassium 5.1 mEq/L (3.5-5.1); Sodium 138 mEq/L (136-145); Total Protein 5.5 g/dL (6.4-8.9); eGFR For African Americans > 60 (> 60); eGFR For Non-African Americans 53 (> 60)
[2022-03-26] MEDS: Metoprolol XL (24 HR) Succ 50 MG TAB.ER.24H PO SCH ×2 (07:25→21:41)
[2022-03-26] MEDS: Insulin LISPRO 300 UNITS/3 ML VIAL SUBQ SCH ×4 (07:26→22:44)
[2022-03-26] MEDS ORDERED: *HR* FentaNYL (PF) 100 MCG/2 ML VIAL ONE ×2 (07:36→08:32)
[2022-03-26] MEDS ORDERED: *HR* Propofol 200 MG/20 ML VIAL IVP ONE (07:36)
[2022-03-26] MEDS ORDERED: Lidocaine -MPF 2% 5 ML VIAL ONE (07:37)
[2022-03-26] MEDS ORDERED: Ondansetron 4 MG/2 ML VIAL ONE (07:37)
[2022-03-26] MEDS ORDERED: Ringers Solution, Lactated 1,000 ML IVC SCH (07:45)
[2022-03-26] MEDS ORDERED: *HR* Vasopressin 20 UNIT/ML VIAL ONE ×2 (08:31→08:36)
[2022-03-26] MEDS ORDERED: DilTIAZem CD (24hr) 180 MG CAP.ER.24H PO SCH (09:00)
[2022-03-26] MEDS: Carbidopa/Levodopa ER 50/200 TABLET PO SCH ×2 (09:17→21:41)
[2022-03-26] MEDS ORDERED: D5% in Water 1,000 ML IVC PRN (10:35)
[2022-03-26] MEDS ORDERED: Mag Hydrox/Al Hydrox/Simeth 30 ML UDC PO PRN (10:35)
[2022-03-26] MEDS ORDERED: MOM Conc 10 ML UD.LIQ PO PRN (10:35)
[2022-03-26] MEDS ORDERED: Ondansetron ODT 4 MG TAB.RAPDIS SL PRN (10:35)
[2022-03-26] MEDS ORDERED: Naloxone 0.4 MG/ML INJ IVP PRN (10:35)
[2022-03-26] MEDS ORDERED: Dextrose Gel 15 GM/37.5 ML TUBE PO PRN ×2 (10:35)
[2022-03-26] MEDS ORDERED: Melatonin 3 MG TABLET PO PRN (10:35)
[2022-03-26] MEDS ORDERED: *HR* Dextrose 50 % in Water (Syg) 50 ML SYRINGE IVP PRN (10:35)
[2022-03-26] MEDS: Ringers Solution, Lactated 1,000 ML IVC SCH (10:40)
[2022-03-26 11:29] LABS: Hematocrit 30.5 % (37.5-50.1); Hemoglobin 9.5 g/dL (12.9-16.9); Lymphocytes # 0.7 K/mcL (0.6-4.6); Mean Corpuscular HGB Conc 31.1 g/dL (31.6-35.5); Mean Corpuscular Hemoglobin 28.1 pg (28.0-33.3); Mean Corpuscular Volume 90.2 fL (83.0-100.0); Mean Platelet Volume 10.2 fL (9.4-12.4); Platelet Count 333 K/mcL (140-400); Red Blood Count 3.38 M/mcL (4.19-5.50); Red Cell Distribution Width 15.1 % (11.5-14.5)
[2022-03-26 11:40] LABS: White Blood Count 32.6 K/mcL (4.3-11.1)
[2022-03-26 11:49] LABS: Basophils # 0.7 K/mcL (0.0-0.2); Eosinophils # 0.7 K/mcL (0.0-0.6); Neutrophils # 30.6 K/mcL (1.6-8.9)
[2022-03-26 11:50] LABS: Hypochromasia Present (Not Present); Platelet Estimate Normal (Normal); Poikilocytosis 1+ (Not Present)
[2022-03-26] MEDS: Acetaminophen 325 MG TABLET PO SCH ×3 (12:21→22:41)
[2022-03-26] MEDS: *HR* OxyCODONE Immed Rel 5 MG TABLET PO PRN ×2 (12:30→22:51)
[2022-03-26] MEDS ORDERED: cefTRIAXone 1,000 MG in 0.9 % Sodium Chloride 10 ML IVP SCH (18:00)
[2022-03-27] MEDS: Acetaminophen 325 MG TABLET PO SCH ×6 (00:23→20:44)
[2022-03-27 04:14] LABS: Basophils % 0.2 %; Eosinophils # 0.1 K/mcL (0.0-0.6); Eosinophils % 0.3 %; Hematocrit 29.1 % (37.5-50.1); Hemoglobin 8.8 g/dL (12.9-16.9); Immature Granulocytes % 0.4 % (0-4); Lymphocytes % 5.4 %; Mean Corpuscular HGB Conc 30.2 g/dL (31.6-35.5); Mean Corpuscular Hemoglobin 27.5 pg (28.0-33.3); Mean Corpuscular Volume 90.9 fL (83.0-100.0); Mean Platelet Volume 10.2 fL (9.4-12.4); Monocytes # 1.7 K/mcL (0.0-1.3); Monocytes % 9.4 %; Neutrophils # 15.5 K/mcL (1.6-8.9); Platelet Count 360 K/mcL (140-400); Red Cell Distribution Width 15.3 % (11.5-14.5); Segmented Neutrophils % 84.3 %; White Blood Count 18.5 K/mcL (4.3-11.1)
[2022-03-27 04:36] LABS: Calcium 8.4 mg/dL (8.6-10.3); Magnesium 2.1 mg/dL (1.6-2.6); Phosphorous 4.2 mg/dL (2.7-4.5)
[2022-03-27] MEDS ORDERED: *HR* Enoxaparin 40 MG/0.4 ML SYRINGE SQ SCH (06:00)
[2022-03-27] MEDS: Carbidopa/Levodopa ER 50/200 TABLET PO SCH ×2 (08:21→20:43)
[2022-03-27] MEDS: FLUoxetine 20 MG CAPSULE PO SCH (08:22)
[2022-03-27] MEDS: Cholecalciferol (D-3) 1,000 UNIT (25MCG) TABLET PO SCH (08:22)
[2022-03-27] MEDS: Ascorbic Acid 500 MG TABLET PO SCH (08:22)
[2022-03-27] MEDS: BuPROPion XL (24 HR) 150 MG TABLET PO SCH (08:22)
[2022-03-27] MEDS: Insulin LISPRO 300 UNITS/3 ML VIAL SUBQ SCH ×4 (08:24→20:57)
[2022-03-27] MEDS: DilTIAZem CD (24hr) 180 MG CAP.ER.24H PO SCH (12:34)
[2022-03-27] MEDS: Furosemide 40 MG TABLET PO SCH (12:34)
[2022-03-27] MEDS: Metoprolol XL (24 HR) Succ 50 MG TAB.ER.24H PO SCH ×2 (12:35→20:43)
[2022-03-27] MEDS: Doxycycline 100 MG CAPSULE PO SCH ×2 (12:44→20:44)
[2022-03-27] MEDS: *HR* OxyCODONE Immed Rel 5 MG TABLET PO PRN (15:17)
[2022-03-27] MEDS ORDERED: *HR* HYDROmorphone 2 MG/ML SYRINGE IVP ONE (17:09)
[2022-03-27] MEDS: *HR* Rivaroxaban 15 MG TABLET PO SCH (17:50)
[2022-03-27] MEDS: Ringers Solution, Lactated 1,000 ML IVC SCH (20:47)
[2022-03-28] MEDS: *HR* OxyCODONE Immed Rel 5 MG TABLET PO PRN ×3 (00:16→21:25)
[2022-03-28 07:22] LABS: Basophils # 0.1 K/mcL (0.0-0.2); Basophils % 1.1 %; Eosinophils # 0.7 K/mcL (0.0-0.6); Eosinophils % 5.7 %; Hematocrit 29.6 % (37.5-50.1); Hemoglobin 8.9 g/dL (12.9-16.9); Immature Granulocytes % 0.6 % (0-4); Lymphocytes # 1.5 K/mcL (0.6-4.6); Lymphocytes % 11.6 %; Mean Corpuscular HGB Conc 30.1 g/dL (31.6-35.5); Mean Corpuscular Hemoglobin 28.1 pg (28.0-33.3); Mean Corpuscular Volume 93.4 fL (83.0-100.0); Mean Platelet Volume 10.2 fL (9.4-12.4); Monocytes # 1.5 K/mcL (0.0-1.3); Neutrophils # 8.7 K/mcL (1.6-8.9); Platelet Count 356 K/mcL (140-400); Red Blood Count 3.17 M/mcL (4.19-5.50); Red Cell Distribution Width 15.5 % (11.5-14.5); White Blood Count 12.6 K/mcL (4.3-11.1)
[2022-03-28 07:38] LABS: Calcium 8.3 mg/dL (8.6-10.3); Phosphorous 3.1 mg/dL (2.7-4.5); Potassium 4.3 mEq/L (3.5-5.1)
[2022-03-28] MEDS: FLUoxetine 20 MG CAPSULE PO SCH (09:25)
[2022-03-28] MEDS: Ascorbic Acid 500 MG TABLET PO SCH (09:25)
[2022-03-28] MEDS: Doxycycline 100 MG CAPSULE PO SCH ×2 (09:25→21:25)
[2022-03-28] MEDS: BuPROPion XL (24 HR) 150 MG TABLET PO SCH (09:26)
[2022-03-28] MEDS: Cholecalciferol (D-3) 1,000 UNIT (25MCG) TABLET PO SCH (09:26)
[2022-03-28] MEDS: Carbidopa/Levodopa ER 50/200 TABLET PO SCH ×2 (09:27→21:25)
[2022-03-28] MEDS: Insulin LISPRO 300 UNITS/3 ML VIAL SUBQ SCH ×4 (09:32→21:31)
[2022-03-28 11:16] LABS: Lactate Dehydrogenase 172 Units/L (140-271); Total Protein 5.7 g/dL (6.4-8.9)
[2022-03-28] MEDS: Metoprolol XL (24 HR) Succ 50 MG TAB.ER.24H PO SCH ×2 (15:18→21:26)
[2022-03-28] MEDS: Furosemide 40 MG TABLET PO SCH (15:19)
[2022-03-28] MEDS: DilTIAZem CD (24hr) 180 MG CAP.ER.24H PO SCH (15:32)
[2022-03-28] MEDS: *HR* Rivaroxaban 15 MG TABLET PO SCH (16:58)
[2022-03-28] MEDS: Albumin 25% 25gram/100mL 25 GM/100 ML IV.SOLN IVPB SCH (16:58)
[2022-03-28 17:13] LABS: RBC,Pleural Fluid 13000 RBC/mcL
[2022-03-28 17:28] LABS: Glucose,Pleural Fluid 240 mg/dL (No Ref Range); LDH,Pleural Fluid 110 Units/L (No Ref Range); Total Protein,Pleural Fluid < 2.0 g/dL
[2022-03-28 18:14] LABS: Appearance of Pleural Fl Cloudy (Clear)
[2022-03-28 21:58] LABS: Basophils,Pleural Fluid 0 %
[2022-03-29] MEDS: Albumin 25% 25gram/100mL 25 GM/100 ML IV.SOLN IVPB SCH ×2 (00:31→08:27)
[2022-03-29] MEDS: Metoprolol XL (24 HR) Succ 50 MG TAB.ER.24H PO SCH ×2 (08:29→22:40)
[2022-03-29] MEDS: DilTIAZem CD (24hr) 180 MG CAP.ER.24H PO SCH (08:29)
[2022-03-29] MEDS: FLUoxetine 20 MG CAPSULE PO SCH (08:29)
[2022-03-29] MEDS: Furosemide 40 MG TABLET PO SCH (08:30)
[2022-03-29] MEDS: BuPROPion XL (24 HR) 150 MG TABLET PO SCH (08:30)
[2022-03-29] MEDS: Cholecalciferol (D-3) 1,000 UNIT (25MCG) TABLET PO SCH (08:30)
[2022-03-29] MEDS: Carbidopa/Levodopa ER 50/200 TABLET PO SCH ×2 (08:32→22:41)
[2022-03-29] MEDS: Doxycycline 100 MG CAPSULE PO SCH ×2 (08:32→22:40)
[2022-03-29] MEDS: Ascorbic Acid 500 MG TABLET PO SCH (08:32)
[2022-03-29] MEDS: Insulin LISPRO 300 UNITS/3 ML VIAL SUBQ SCH ×4 (08:39→22:44)
[2022-03-29] MEDS: *HR* OxyCODONE Immed Rel 5 MG TABLET PO PRN ×2 (09:38→19:09)
[2022-03-29] MEDS: *HR* Rivaroxaban 15 MG TABLET PO SCH (17:29)
[2022-03-30] MEDS: *HR* OxyCODONE Immed Rel 5 MG TABLET PO PRN ×2 (01:38→08:23)
[2022-03-30 05:56] LABS: Hematocrit 28.2 % (37.5-50.1); Hemoglobin 8.5 g/dL (12.9-16.9); Immature Granulocytes % 0.4 % (0-4); Lymphocytes % 10.2 %; Mean Corpuscular HGB Conc 30.1 g/dL (31.6-35.5); Mean Corpuscular Hemoglobin 27.8 pg (28.0-33.3); Mean Corpuscular Volume 92.2 fL (83.0-100.0); Mean Platelet Volume 10.3 fL (9.4-12.4); Platelet Count 384 K/mcL (140-400); Red Blood Count 3.06 M/mcL (4.19-5.50); Red Cell Distribution Width 15.5 % (11.5-14.5); Segmented Neutrophils % 74.1 %; White Blood Count 15.7 K/mcL (4.3-11.1)
[2022-03-30 05:57] LABS: Basophils # 0.1 K/mcL (0.0-0.2); Basophils % 0.6 %; Eosinophils # 0.5 K/mcL (0.0-0.6); Eosinophils % 3.2 %; Lymphocytes # 1.6 K/mcL (0.6-4.6); Monocytes # 1.8 K/mcL (0.0-1.3); Monocytes % 11.5 %; Neutrophils # 11.7 K/mcL (1.6-8.9)
[2022-03-30 06:14] LABS: BUN/Creatinine Ratio 30 (6-26); Blood Urea Nitrogen 35 mg/dL (8-23); Carbon Dioxide 30 mEq/L (23-29); Chloride 104 mEq/L (98-107); Glucose 219 mg/dL (70-105); Magnesium 1.9 mg/dL (1.6-2.6); Osmolality,Calculated 303 (280-300); Potassium 4.4 mEq/L (3.5-5.1); Sodium 139 mEq/L (136-145); eGFR For African Americans > 60 (> 60); eGFR For Non-African Americans 59 (> 60)
[2022-03-30] MEDS: Carbidopa/Levodopa ER 50/200 TABLET PO SCH ×2 (08:20→20:27)
[2022-03-30] MEDS: Doxycycline 100 MG CAPSULE PO SCH ×2 (08:20→20:27)
[2022-03-30] MEDS: Ascorbic Acid 500 MG TABLET PO SCH (08:20)
[2022-03-30] MEDS: Metoprolol XL (24 HR) Succ 50 MG TAB.ER.24H PO SCH ×2 (08:20→20:27)
[2022-03-30] MEDS: DilTIAZem CD (24hr) 180 MG CAP.ER.24H PO SCH (08:20)
[2022-03-30] MEDS: Furosemide 40 MG TABLET PO SCH (08:20)
[2022-03-30] MEDS: FLUoxetine 20 MG CAPSULE PO SCH (08:20)
[2022-03-30] MEDS: BuPROPion XL (24 HR) 150 MG TABLET PO SCH (08:21)
[2022-03-30] MEDS: Cholecalciferol (D-3) 1,000 UNIT (25MCG) TABLET PO SCH (08:21)
[2022-03-30] MEDS: Insulin LISPRO 300 UNITS/3 ML VIAL SUBQ SCH ×4 (08:24→20:28)
[2022-03-30] MEDS: Acetaminophen 325 MG TABLET PO PRN (11:15)
[2022-03-30] MEDS ORDERED: *HR* Rivaroxaban 10 MG TABLET PO SCH (17:00)
[2022-03-30 22:09] LABS: Fluid Source for Cholesterol PLEURAL FLUID
[2022-03-31] MEDS: *HR* OxyCODONE Immed Rel 5 MG TABLET PO PRN ×3 (05:24→17:49)
[2022-03-31 05:48] LABS: Basophils # 0.1 K/mcL (0.0-0.2); Basophils % 0.5 %; Eosinophils # 0.5 K/mcL (0.0-0.6); Hematocrit 27.8 % (37.5-50.1); Hemoglobin 8.5 g/dL (12.9-16.9); Immature Granulocytes % 0.5 % (0-4); Lymphocytes # 1.1 K/mcL (0.6-4.6); Lymphocytes % 7.5 %; Mean Corpuscular HGB Conc 30.6 g/dL (31.6-35.5); Mean Corpuscular Hemoglobin 28.1 pg (28.0-33.3); Mean Corpuscular Volume 92.1 fL (83.0-100.0); Mean Platelet Volume 10.3 fL (9.4-12.4); Monocytes # 1.6 K/mcL (0.0-1.3); Monocytes % 10.8 %; Neutrophils # 11.5 K/mcL (1.6-8.9); Platelet Count 415 K/mcL (140-400); Red Blood Count 3.02 M/mcL (4.19-5.50); Red Cell Distribution Width 15.8 % (11.5-14.5); Segmented Neutrophils % 77.7 %; White Blood Count 14.9 K/mcL (4.3-11.1)
[2022-03-31 06:00] LABS: BUN/Creatinine Ratio 30 (6-26); Blood Urea Nitrogen 36 mg/dL (8-23); Calcium 8.7 mg/dL (8.6-10.3); Carbon Dioxide 30 mEq/L (23-29); Chloride 101 mEq/L (98-107); Glucose 248 mg/dL (70-105); Magnesium 1.9 mg/dL (1.6-2.6); Osmolality,Calculated 299 (280-300); Potassium 4.1 mEq/L (3.5-5.1); Sodium 136 mEq/L (136-145); eGFR For African Americans > 60 (> 60); eGFR For Non-African Americans 58 (> 60)
[2022-03-31] MEDS: BuPROPion XL (24 HR) 150 MG TABLET PO SCH (08:18)
[2022-03-31] MEDS: FLUoxetine 20 MG CAPSULE PO SCH (08:18)
[2022-03-31] MEDS: Ascorbic Acid 500 MG TABLET PO SCH (08:19)
[2022-03-31] MEDS: Furosemide 40 MG TABLET PO SCH (08:19)
[2022-03-31] MEDS: Cholecalciferol (D-3) 1,000 UNIT (25MCG) TABLET PO SCH (08:19)
[2022-03-31] MEDS: Carbidopa/Levodopa ER 50/200 TABLET PO SCH ×2 (08:19→19:49)
[2022-03-31] MEDS: Metoprolol XL (24 HR) Succ 50 MG TAB.ER.24H PO SCH ×2 (08:19→19:48)
[2022-03-31] MEDS: Doxycycline 100 MG CAPSULE PO SCH ×2 (08:19→19:49)
[2022-03-31] MEDS: DilTIAZem CD (24hr) 180 MG CAP.ER.24H PO SCH (08:19)
[2022-03-31] MEDS: Insulin LISPRO 300 UNITS/3 ML VIAL SUBQ SCH ×3 (08:21→17:50)
[2022-03-31] MEDS: Acetaminophen 325 MG TABLET PO PRN (09:50)
[2022-03-31] MEDS ORDERED: Ringers Solution, Lactated 1,000 ML IVC ONE (10:33)
[2022-03-31 10:45] LABS: Cholesterol,Body Fluid 18 mg/dL
[2022-03-31] MEDS ORDERED: cefTRIAXone 1,000 MG in 0.9 % Sodium Chloride 10 ML IVP SCH (18:00)
[2022-03-31] MEDS ORDERED: Insulin DETEMIR 100 UNIT/ML X5UNITS SUBQ SCH (21:00)
[2022-04-01] MEDS: *HR* OxyCODONE Immed Rel 5 MG TABLET PO PRN ×3 (01:59→15:00)
[2022-04-01 05:24] LABS: Basophils # 0.1 K/mcL (0.0-0.2); Basophils % 0.6 %; Eosinophils # 0.7 K/mcL (0.0-0.6); Eosinophils % 4.5 %; Hematocrit 28.3 % (37.5-50.1); Hemoglobin 8.5 g/dL (12.9-16.9); Immature Granulocytes % 0.6 % (0-4); Lymphocytes # 1.4 K/mcL (0.6-4.6); Lymphocytes % 9.3 %; Mean Corpuscular Hemoglobin 27.7 pg (28.0-33.3); Mean Corpuscular Volume 92.2 fL (83.0-100.0); Mean Platelet Volume 10.4 fL (9.4-12.4); Monocytes # 1.7 K/mcL (0.0-1.3); Monocytes % 11.5 %; Platelet Count 430 K/mcL (140-400); Red Blood Count 3.07 M/mcL (4.19-5.50); Red Cell Distribution Width 15.7 % (11.5-14.5); Segmented Neutrophils % 73.5 %
[2022-04-01 05:41] LABS: BUN/Creatinine Ratio 30 (6-26); Blood Urea Nitrogen 36 mg/dL (8-23); Carbon Dioxide 27 mEq/L (23-29); Chloride 104 mEq/L (98-107); Glucose 221 mg/dL (70-105); Magnesium 1.8 mg/dL (1.6-2.6); Osmolality,Calculated 299 (280-300); Potassium 4.4 mEq/L (3.5-5.1); Sodium 137 mEq/L (136-145); eGFR For African Americans > 60 (> 60); eGFR For Non-African Americans 57 (> 60)
[2022-04-01] MEDS: BuPROPion XL (24 HR) 150 MG TABLET PO SCH (09:03)
[2022-04-01] MEDS: Ascorbic Acid 500 MG TABLET PO SCH (09:03)
[2022-04-01] MEDS: Metoprolol XL (24 HR) Succ 50 MG TAB.ER.24H PO SCH ×2 (09:03→20:16)
[2022-04-01] MEDS: Carbidopa/Levodopa ER 50/200 TABLET PO SCH ×2 (09:04→20:15)
[2022-04-01] MEDS: FLUoxetine 20 MG CAPSULE PO SCH (09:04)
[2022-04-01] MEDS: DilTIAZem CD (24hr) 180 MG CAP.ER.24H PO SCH (09:04)
[2022-04-01] MEDS: Lactobacillus 1 EACH CAP.SPRINK PO SCH ×2 (09:04→20:15)
[2022-04-01] MEDS: Doxycycline 100 MG CAPSULE PO SCH ×2 (09:04→20:15)
[2022-04-01] MEDS: Cholecalciferol (D-3) 1,000 UNIT (25MCG) TABLET PO SCH (09:04)
[2022-04-01] MEDS: Furosemide 40 MG TABLET PO SCH (09:05)
[2022-04-01] MEDS: Piperacillin/Tazobactam 3.375 GM in 0.9 % Sodium Chloride Mini Bag 100 ML IVPB SCH ×3 (09:10→23:58)
[2022-04-01] MEDS: Insulin DETEMIR 100 UNIT/ML X5UNITS SUBQ SCH ×2 (09:10→20:17)
[2022-04-01] MEDS: Insulin LISPRO 300 UNITS/3 ML VIAL SUBQ SCH ×3 (09:10→17:15)
[2022-04-01] MEDS: Acetaminophen 325 MG TABLET PO PRN (14:29)
[2022-04-01 15:53] LABS: Influenza A PCR Negative (Negative); Influenza B PCR Negative (Negative); Resp. Syncytial Virus PCR Negative (Negative); SARS-CoV-2 by PCR (In House) Negative (Negative)
[2022-04-01] MEDS: Ringers Solution, Lactated 1,000 ML IVC SCH ×2 (20:17→20:18)
[2022-04-02 04:57] LABS: Basophils # 0.1 K/mcL (0.0-0.2); Basophils % 0.6 %; Eosinophils # 0.7 K/mcL (0.0-0.6); Eosinophils % 4.8 %; Hematocrit 26.7 % (37.5-50.1); Hemoglobin 8.1 g/dL (12.9-16.9); Immature Granulocytes % 0.6 % (0-4); Lymphocytes # 1.3 K/mcL (0.6-4.6); Lymphocytes % 9.2 %; Mean Corpuscular HGB Conc 30.3 g/dL (31.6-35.5); Mean Corpuscular Volume 92.4 fL (83.0-100.0); Mean Platelet Volume 10.1 fL (9.4-12.4); Monocytes # 1.6 K/mcL (0.0-1.3); Monocytes % 11.2 %; Neutrophils # 10.2 K/mcL (1.6-8.9); Platelet Count 418 K/mcL (140-400); Red Blood Count 2.89 M/mcL (4.19-5.50); Red Cell Distribution Width 15.8 % (11.5-14.5); Segmented Neutrophils % 73.6 %; White Blood Count 13.9 K/mcL (4.3-11.1)
[2022-04-02 05:16] LABS: BUN/Creatinine Ratio 27 (6-26); Blood Urea Nitrogen 36 mg/dL (8-23); Calcium 8.4 mg/dL (8.6-10.3); Carbon Dioxide 29 mEq/L (23-29); Chloride 105 mEq/L (98-107); Glucose 134 mg/dL (70-105); Magnesium 1.9 mg/dL (1.6-2.6); Osmolality,Calculated 298 (280-300); Sodium 139 mEq/L (136-145); eGFR For African Americans > 60 (> 60); eGFR For Non-African Americans 52 (> 60)
[2022-04-02] MEDS: Acetaminophen 325 MG TABLET PO PRN ×2 (07:55→17:12)
[2022-04-02] MEDS: *HR* OxyCODONE Immed Rel 5 MG TABLET PO PRN ×2 (07:55→14:28)
[2022-04-02] MEDS: Carbidopa/Levodopa ER 50/200 TABLET PO SCH ×2 (08:11→20:36)
[2022-04-02] MEDS: BuPROPion XL (24 HR) 150 MG TABLET PO SCH (08:11)
[2022-04-02] MEDS: Lactobacillus 1 EACH CAP.SPRINK PO SCH ×2 (08:11→20:36)
[2022-04-02] MEDS: Cholecalciferol (D-3) 1,000 UNIT (25MCG) TABLET PO SCH (08:11)
[2022-04-02] MEDS: Metoprolol XL (24 HR) Succ 50 MG TAB.ER.24H PO SCH ×2 (08:12→20:37)
[2022-04-02] MEDS: FLUoxetine 20 MG CAPSULE PO SCH (08:12)
[2022-04-02] MEDS: Ascorbic Acid 500 MG TABLET PO SCH (08:12)
[2022-04-02] MEDS: Doxycycline 100 MG CAPSULE PO SCH ×2 (08:12→20:36)
[2022-04-02] MEDS: Insulin DETEMIR 100 UNIT/ML X5UNITS SUBQ SCH ×2 (08:13→20:36)
[2022-04-02] MEDS: DilTIAZem CD (24hr) 180 MG CAP.ER.24H PO SCH (08:13)
[2022-04-02] MEDS: Furosemide 40 MG TABLET PO SCH (08:13)
[2022-04-02] MEDS: Piperacillin/Tazobactam 3.375 GM in 0.9 % Sodium Chloride Mini Bag 100 ML IVPB SCH ×3 (08:14→23:10)
[2022-04-02] MEDS: Ringers Solution, Lactated 1,000 ML IVC SCH (08:25)
[2022-04-02] MEDS: Insulin LISPRO 300 UNITS/3 ML VIAL SUBQ SCH ×3 (08:36→17:11)
[2022-04-03 03:56] LABS: Basophils # 0.1 K/mcL (0.0-0.2); Basophils % 0.6 %; Eosinophils # 0.8 K/mcL (0.0-0.6); Eosinophils % 6.1 %; Hematocrit 26.8 % (37.5-50.1); Hemoglobin 8.2 g/dL (12.9-16.9); Immature Granulocytes % 0.5 % (0-4); Lymphocytes # 1.4 K/mcL (0.6-4.6); Lymphocytes % 10.9 %; Mean Corpuscular HGB Conc 30.6 g/dL (31.6-35.5); Mean Corpuscular Hemoglobin 28.1 pg (28.0-33.3); Mean Corpuscular Volume 91.8 fL (83.0-100.0); Mean Platelet Volume 10.7 fL (9.4-12.4); Monocytes # 1.6 K/mcL (0.0-1.3); Monocytes % 12.5 %; Neutrophils # 8.6 K/mcL (1.6-8.9); Platelet Count 459 K/mcL (140-400); Red Blood Count 2.92 M/mcL (4.19-5.50); Red Cell Distribution Width 15.9 % (11.5-14.5); Segmented Neutrophils % 69.4 %; White Blood Count 12.4 K/mcL (4.3-11.1)
[2022-04-03 04:17] LABS: Calcium 8.8 mg/dL (8.6-10.3); Magnesium 1.8 mg/dL (1.6-2.6)
[2022-04-03] MEDS: Ringers Solution, Lactated 1,000 ML IVC SCH (05:52)
[2022-04-03] MEDS: Piperacillin/Tazobactam 3.375 GM in 0.9 % Sodium Chloride Mini Bag 100 ML IVPB SCH ×2 (07:47→16:48)
[2022-04-03] MEDS: Insulin LISPRO 300 UNITS/3 ML VIAL SUBQ SCH ×3 (07:47→16:48)
[2022-04-03] MEDS: DilTIAZem CD (24hr) 180 MG CAP.ER.24H PO SCH ×2 (07:52→10:35)
[2022-04-03] MEDS: Lactobacillus 1 EACH CAP.SPRINK PO SCH ×2 (07:52→20:46)
[2022-04-03] MEDS: FLUoxetine 20 MG CAPSULE PO SCH (07:53)
[2022-04-03] MEDS: Doxycycline 100 MG CAPSULE PO SCH ×2 (07:53→20:46)
[2022-04-03] MEDS: Furosemide 40 MG TABLET PO SCH (07:54)
[2022-04-03] MEDS: Insulin DETEMIR 100 UNIT/ML X5UNITS SUBQ SCH ×2 (07:54→20:46)
[2022-04-03] MEDS: Metoprolol XL (24 HR) Succ 50 MG TAB.ER.24H PO SCH ×2 (07:55→20:46)
[2022-04-03] MEDS: BuPROPion XL (24 HR) 150 MG TABLET PO SCH (07:55)
[2022-04-03] MEDS: Cholecalciferol (D-3) 1,000 UNIT (25MCG) TABLET PO SCH (07:55)
[2022-04-03] MEDS: Carbidopa/Levodopa ER 50/200 TABLET PO SCH ×2 (07:55→20:46)
[2022-04-03] MEDS: Ascorbic Acid 500 MG TABLET PO SCH (07:55)
[2022-04-03] MEDS: *HR* OxyCODONE Immed Rel 5 MG TABLET PO PRN ×2 (13:13→20:52)
[2022-04-03] MEDS ORDERED: 0.9 % Sodium Chloride 1,000 ML IVC SCH (13:15)
[2022-04-04] MEDS: Piperacillin/Tazobactam 3.375 GM in 0.9 % Sodium Chloride Mini Bag 100 ML IVPB SCH ×3 (00:09→18:29)
[2022-04-04 06:14] LABS: Basophils # 0.1 K/mcL (0.0-0.2); Basophils % 0.6 %; Eosinophils # 0.7 K/mcL (0.0-0.6); Eosinophils % 5.1 %; Hematocrit 25.9 % (37.5-50.1); Hemoglobin 8.1 g/dL (12.9-16.9); Immature Granulocytes % 0.5 % (0-4); Lymphocytes # 1.3 K/mcL (0.6-4.6); Lymphocytes % 9.8 %; Mean Corpuscular HGB Conc 31.3 g/dL (31.6-35.5); Mean Corpuscular Volume 89.6 fL (83.0-100.0); Monocytes # 1.6 K/mcL (0.0-1.3); Neutrophils # 9.3 K/mcL (1.6-8.9); Platelet Count 455 K/mcL (140-400); Red Blood Count 2.89 M/mcL (4.19-5.50); Red Cell Distribution Width 15.8 % (11.5-14.5); White Blood Count 12.9 K/mcL (4.3-11.1)
[2022-04-04 07:14] LABS: Calcium 8.6 mg/dL (8.6-10.3); Magnesium 1.9 mg/dL (1.6-2.6)
[2022-04-04] MEDS: Furosemide 40 MG TABLET PO SCH (07:51)
[2022-04-04] MEDS: FLUoxetine 20 MG CAPSULE PO SCH (07:52)
[2022-04-04] MEDS: Carbidopa/Levodopa ER 50/200 TABLET PO SCH ×2 (07:52→22:04)
[2022-04-04] MEDS: Cholecalciferol (D-3) 1,000 UNIT (25MCG) TABLET PO SCH (07:52)
[2022-04-04] MEDS: Metoprolol XL (24 HR) Succ 50 MG TAB.ER.24H PO SCH ×2 (07:52→22:04)
[2022-04-04] MEDS: DilTIAZem CD (24hr) 180 MG CAP.ER.24H PO SCH (07:52)
[2022-04-04] MEDS: Ascorbic Acid 500 MG TABLET PO SCH (07:52)
[2022-04-04] MEDS: BuPROPion XL (24 HR) 150 MG TABLET PO SCH (07:52)
[2022-04-04] MEDS: Doxycycline 100 MG CAPSULE PO SCH ×2 (07:52→22:04)
[2022-04-04] MEDS: Lactobacillus 1 EACH CAP.SPRINK PO SCH ×2 (07:52→22:04)
[2022-04-04] MEDS: Insulin LISPRO 300 UNITS/3 ML VIAL SUBQ SCH ×3 (07:54→17:01)
[2022-04-04] MEDS: Insulin DETEMIR 100 UNIT/ML X5UNITS SUBQ SCH ×2 (08:46→22:05)
[2022-04-04] MEDS ORDERED: Albumin 25% 25gram/100mL 25 GM/100 ML IV.SOLN IVPB SCH (16:00)
[2022-04-04] MEDS: *HR* OxyCODONE Immed Rel 5 MG TABLET PO PRN ×2 (16:37→22:04)
[2022-04-04 19:27] VITALS: BP 109/52; PULSE 99; TEMP 98.5; O2SAT 93
== END 2022-04-04 22:23 | DRG 853 ==
LOC: 4WAOSI → SUATTDRO 18:06
PROVIDERS: ADMIT Student in an Organized Health Care Education/Training Program; ATTEND Pharmacist
PROC: ENDOAPI (2022-03-28 12:00)

== ENCOUNTER 2022-04-17 18:15 | Inpatient (IN) ==
[2022-04-17] MEDS ORDERED: Acetaminophen 325 MG TABLET PO PRN (22:11)
[2022-04-17] MEDS ORDERED: Naloxone 0.4 MG/ML INJ IVP PRN (22:11)
[2022-04-17] MEDS ORDERED: Dextrose Gel 15 GM/37.5 ML TUBE PO PRN ×2 (23:53)
[2022-04-18] MEDS: Insulin LISPRO 300 UNITS/3 ML VIAL SUBQ SCH ×4 (00:15→16:55)
[2022-04-18] MEDS ORDERED: Morphine Sulfate 2 MG/ML SYRINGE IVP ONE (01:08)
[2022-04-18 03:26] LABS: Hematocrit 31.4 % (37.5-50.1); Hemoglobin 9.8 g/dL (12.9-16.9); Immature Granulocytes % 0.6 % (0-4); Lymphocytes # 0.3 K/mcL (0.6-4.6); Lymphocytes % 1.8 %; Mean Corpuscular HGB Conc 31.2 g/dL (31.6-35.5); Mean Corpuscular Hemoglobin 28.7 pg (28.0-33.3); Mean Corpuscular Volume 91.8 fL (83.0-100.0); Mean Platelet Volume 10.6 fL (9.4-12.4); Monocytes # 0.7 K/mcL (0.0-1.3); Monocytes % 4.5 %; Neutrophils # 13.9 K/mcL (1.6-8.9); Platelet Count 360 K/mcL (140-400); Red Blood Count 3.42 M/mcL (4.19-5.50); Red Cell Distribution Width 17.6 % (11.5-14.5); Segmented Neutrophils % 93.1 %; White Blood Count 14.9 K/mcL (4.3-11.1)
[2022-04-18 03:34] LABS: INR 1.6
[2022-04-18 03:36] LABS: Activated Partial Thrombo Time 30.8 Seconds (26.0-36.0)
[2022-04-18 04:10] LABS: Alanine Aminotransferase 6 Units/L (7-52); Albumin 3.4 g/dL (3.5-5.7); Albumin/Globulin Ratio 1.5 (1.1-2.2); Alkaline Phosphatase 92 Units/L (34-104); Aspartate Amino Transferase 8 Units/L (13-39); BUN/Creatinine Ratio 28 (6-26); Bilirubin,Total 0.5 mg/dL (0.3-1.0); Blood Urea Nitrogen 34 mg/dL (8-23); Calcium 8.5 mg/dL (8.6-10.3); Carbon Dioxide 29 mEq/L (23-29); Chloride 100 mEq/L (98-107); Globulin 2.3 g/dL (2.4-3.5); Glucose 241 mg/dL (70-105); Magnesium 1.8 mg/dL (1.6-2.6); Osmolality,Calculated 300 (280-300); Phosphorous 3.4 mg/dL (2.7-4.5); Potassium 4.1 mEq/L (3.5-5.1); Sodium 137 mEq/L (136-145); Total Protein 5.7 g/dL (6.4-8.9); eGFR For African Americans > 60 (> 60); eGFR For Non-African Americans 57 (> 60)
[2022-04-18] MEDS: BuPROPion XL (24 HR) 150 MG TABLET PO SCH (08:59)
[2022-04-18] MEDS: Carbidopa/Levodopa ER 50/200 TABLET PO SCH ×2 (08:59→21:29)
[2022-04-18] MEDS: DilTIAZem CD (24hr) 180 MG CAP.ER.24H PO SCH (08:59)
[2022-04-18] MEDS: Metoprolol XL (24 HR) Succ 50 MG TAB.ER.24H PO SCH ×2 (08:59→21:29)
[2022-04-18] MEDS ORDERED: FLUoxetine 20 MG CAPSULE PO SCH (09:00)
[2022-04-18] MEDS ORDERED: Furosemide 20 MG TABLET PO SCH (09:00)
[2022-04-18] MEDS: Budesonide/Formoterol 160/4.5 1 PUFF INH IH SCH ×2 (09:41→19:59)
[2022-04-18] MEDS ORDERED: *HR* Heparin 5,000 UNIT/ML VIAL SQ SCH (09:45)
[2022-04-18] MEDS: Furosemide Oral Soln 40 MG/4 ML UDC PO SCH (11:32)
[2022-04-18] MEDS: FLUoxetine HCl Oral Soln 20 MG/5 ML UDC PO SCH (11:33)
[2022-04-18] MEDS ORDERED: *HR* OxyCODONE Immed Rel 5 MG TABLET PO PRN (11:40)
[2022-04-18] MEDS: Ipratropium 1 PUFF INHALER IH SCH ×4 (15:32→23:41)
[2022-04-18] MEDS: Lactobacillus 1 EACH CAP.SPRINK PO SCH (21:29)
[2022-04-19] MEDS: Insulin LISPRO 300 UNITS/3 ML VIAL SUBQ SCH ×5 (00:42→20:47)
[2022-04-19] MEDS: Ipratropium 1 PUFF INHALER IH SCH ×5 (03:49→20:21)
[2022-04-19 04:54] LABS: Basophils % 0.1 %; Eosinophils % 0.1 %; Hematocrit 30.5 % (37.5-50.1); Hemoglobin 9.3 g/dL (12.9-16.9); Immature Granulocytes % 0.6 % (0-4); Lymphocytes # 0.3 K/mcL (0.6-4.6); Lymphocytes % 1.8 %; Mean Corpuscular HGB Conc 30.5 g/dL (31.6-35.5); Mean Corpuscular Volume 91.9 fL (83.0-100.0); Mean Platelet Volume 10.2 fL (9.4-12.4); Monocytes # 1.5 K/mcL (0.0-1.3); Monocytes % 9.3 %; Neutrophils # 14.4 K/mcL (1.6-8.9); Platelet Count 332 K/mcL (140-400); Red Blood Count 3.32 M/mcL (4.19-5.50); Red Cell Distribution Width 17.2 % (11.5-14.5); Segmented Neutrophils % 88.1 %; White Blood Count 16.3 K/mcL (4.3-11.1)
[2022-04-19 05:10] LABS: BUN/Creatinine Ratio 31 (6-26); Blood Urea Nitrogen 34 mg/dL (8-23); Calcium 8.4 mg/dL (8.6-10.3); Carbon Dioxide 30 mEq/L (23-29); Chloride 100 mEq/L (98-107); Glucose 336 mg/dL (70-105); Magnesium 1.9 mg/dL (1.6-2.6); Osmolality,Calculated 309 (280-300); Potassium 4.5 mEq/L (3.5-5.1); Sodium 139 mEq/L (136-145); eGFR For African Americans > 60 (> 60); eGFR For Non-African Americans > 60 (> 60)
[2022-04-19] MEDS: Budesonide/Formoterol 160/4.5 1 PUFF INH IH SCH ×2 (07:28→20:20)
[2022-04-19] MEDS: Metoprolol XL (24 HR) Succ 50 MG TAB.ER.24H PO SCH ×2 (08:59→20:46)
[2022-04-19] MEDS: Lactobacillus 1 EACH CAP.SPRINK PO SCH ×2 (08:59→20:46)
[2022-04-19] MEDS: BuPROPion XL (24 HR) 150 MG TABLET PO SCH (08:59)
[2022-04-19] MEDS: Carbidopa/Levodopa ER 50/200 TABLET PO SCH ×2 (08:59→20:47)
[2022-04-19] MEDS: Furosemide Oral Soln 40 MG/4 ML UDC PO SCH (08:59)
[2022-04-19] MEDS ORDERED: NON-FORMULARY MEDICATION 1 EACH EACH (Rivaroxaban [Xarelto] 20 MG Tablet) PO SCH (09:00)
[2022-04-19] MEDS ORDERED: *HR* Rivaroxaban 10 MG TABLET PO SCH (09:00)
[2022-04-19] MEDS: FLUoxetine HCl Oral Soln 20 MG/5 ML UDC PO SCH (09:06)
[2022-04-19] MEDS: DilTIAZem CD (24hr) 180 MG CAP.ER.24H PO SCH (09:06)
[2022-04-19] MEDS ORDERED: Insulin DETEMIR 100 UNIT/ML X5UNITS SUBQ ONE (10:52)
[2022-04-19] MEDS: *HR* Rivaroxaban 10 MG TABLET PO SCH (17:46)
[2022-04-19] MEDS: *HR* OxyCODONE Immed Rel 5 MG TABLET PO PRN (17:48)
[2022-04-19] MEDS: Ipratropium/Albuterol Neb 3 ML IH SCH (20:41)
[2022-04-19] MEDS: Insulin DETEMIR 100 UNIT/ML X5UNITS SUBQ SCH (20:47)
[2022-04-20 03:18] LABS: Hematocrit 31.2 % (37.5-50.1); Hemoglobin 9.5 g/dL (12.9-16.9); Mean Corpuscular HGB Conc 30.4 g/dL (31.6-35.5); Mean Platelet Volume 10.6 fL (9.4-12.4); Platelet Count 320 K/mcL (140-400); Red Blood Count 3.39 M/mcL (4.19-5.50); White Blood Count 16.8 K/mcL (4.3-11.1)
[2022-04-20 03:40] LABS: BUN/Creatinine Ratio 31 (6-26); Blood Urea Nitrogen 33 mg/dL (8-23); Calcium 8.3 mg/dL (8.6-10.3); Carbon Dioxide 30 mEq/L (23-29); Chloride 101 mEq/L (98-107); Glucose 185 mg/dL (70-105); Osmolality,Calculated 296 (280-300); Potassium 4.2 mEq/L (3.5-5.1); Sodium 137 mEq/L (136-145); eGFR For African Americans > 60 (> 60); eGFR For Non-African Americans > 60 (> 60)
[2022-04-20] MEDS: Ipratropium/Albuterol Neb 3 ML IH SCH ×4 (03:47→22:37)
[2022-04-20] MEDS: Insulin LISPRO 300 UNITS/3 ML VIAL SUBQ SCH ×4 (07:44→20:28)
[2022-04-20] MEDS: DilTIAZem CD (24hr) 180 MG CAP.ER.24H PO SCH (08:26)
[2022-04-20] MEDS: dexAMETHasone 4 MG TABLET PO SCH (08:26)
[2022-04-20] MEDS: Furosemide 20 MG TABLET PO SCH (08:27)
[2022-04-20] MEDS: FLUoxetine 20 MG CAPSULE PO SCH (08:27)
[2022-04-20] MEDS: Metoprolol XL (24 HR) Succ 50 MG TAB.ER.24H PO SCH ×2 (08:27→20:27)
[2022-04-20] MEDS: BuPROPion XL (24 HR) 150 MG TABLET PO SCH (08:27)
[2022-04-20] MEDS: Lactobacillus 1 EACH CAP.SPRINK PO SCH ×2 (08:27→20:27)
[2022-04-20] MEDS: Carbidopa/Levodopa ER 50/200 TABLET PO SCH ×2 (08:27→20:27)
[2022-04-20] MEDS: Budesonide/Formoterol 160/4.5 1 PUFF INH IH SCH ×2 (10:26→22:37)
[2022-04-20] MEDS: *HR* Rivaroxaban 10 MG TABLET PO SCH (17:18)
[2022-04-20] MEDS: *HR* OxyCODONE Immed Rel 5 MG TABLET PO PRN (20:27)
[2022-04-20] MEDS: Insulin DETEMIR 100 UNIT/ML X5UNITS SUBQ SCH (20:28)
[2022-04-21] MEDS: Ipratropium/Albuterol Neb 3 ML IH SCH ×4 (04:04→22:38)
[2022-04-21] MEDS: BuPROPion XL (24 HR) 150 MG TABLET PO SCH (09:47)
[2022-04-21] MEDS: FLUoxetine 20 MG CAPSULE PO SCH (09:47)
[2022-04-21] MEDS: Furosemide 20 MG TABLET PO SCH (09:47)
[2022-04-21] MEDS: Carbidopa/Levodopa ER 50/200 TABLET PO SCH ×2 (09:48→21:28)
[2022-04-21] MEDS: Lactobacillus 1 EACH CAP.SPRINK PO SCH ×2 (09:48→21:28)
[2022-04-21] MEDS: dexAMETHasone 4 MG TABLET PO SCH (09:48)
[2022-04-21] MEDS: Insulin LISPRO 300 UNITS/3 ML VIAL SUBQ SCH ×4 (09:48→21:28)
[2022-04-21] MEDS: DilTIAZem CD (24hr) 180 MG CAP.ER.24H PO SCH (09:48)
[2022-04-21] MEDS: Metoprolol XL (24 HR) Succ 50 MG TAB.ER.24H PO SCH ×2 (09:48→21:27)
[2022-04-21] MEDS: Budesonide/Formoterol 160/4.5 1 PUFF INH IH SCH ×2 (09:56→22:38)
[2022-04-21] MEDS: *HR* Rivaroxaban 10 MG TABLET PO SCH (17:27)
[2022-04-21] MEDS: Insulin DETEMIR 100 UNIT/ML X5UNITS SUBQ SCH (21:34)
[2022-04-22] MEDS: *HR* OxyCODONE Immed Rel 5 MG TABLET PO PRN ×2 (00:25→10:39)
[2022-04-22] MEDS: Ipratropium/Albuterol Neb 3 ML IH SCH ×4 (03:21→21:37)
[2022-04-22] MEDS: Insulin LISPRO 300 UNITS/3 ML VIAL SUBQ SCH ×4 (07:32→21:41)
[2022-04-22] MEDS: FLUoxetine 20 MG CAPSULE PO SCH (09:34)
[2022-04-22] MEDS: DilTIAZem CD (24hr) 180 MG CAP.ER.24H PO SCH (09:34)
[2022-04-22] MEDS: Carbidopa/Levodopa ER 50/200 TABLET PO SCH ×2 (09:35→20:14)
[2022-04-22] MEDS: Furosemide 20 MG TABLET PO SCH (09:35)
[2022-04-22] MEDS: Lactobacillus 1 EACH CAP.SPRINK PO SCH ×2 (09:35→20:14)
[2022-04-22] MEDS: Metoprolol XL (24 HR) Succ 50 MG TAB.ER.24H PO SCH ×2 (09:35→20:15)
[2022-04-22] MEDS: BuPROPion XL (24 HR) 150 MG TABLET PO SCH (09:35)
[2022-04-22] MEDS: Budesonide/Formoterol 160/4.5 1 PUFF INH IH SCH ×2 (10:24→21:37)
[2022-04-22] MEDS: *HR* Rivaroxaban 10 MG TABLET PO SCH (16:41)
[2022-04-22] MEDS ORDERED: Insulin DETEMIR 100 UNIT/ML X5UNITS SUBQ SCH (21:00)
[2022-04-23] MEDS: Ipratropium/Albuterol Neb 3 ML IH SCH ×4 (04:21→21:35)
[2022-04-23] MEDS ORDERED: ALPRAZolam 0.25 MG TABLET PO ONE (04:57)
[2022-04-23 06:36] LABS: ABG Base Excess 3 mEq/L (-2 to 3); ABG HCO3 27 mEq/L (21-27); ABG Oxygen Saturation 96 % (95-98); ABG PCO2 38 mmHg (35-45); ABG PH 7.46 pH Units (7.32-7.45); ABG PO2 77 mmHg (85-104); ABG TCO2 28 mEq/L (20-26)
[2022-04-23] MEDS: *HR* Dextrose 50 % in Water (Syg) 50 ML SYRINGE IVP PRN ×2 (07:00→08:27)
[2022-04-23] MEDS: Insulin LISPRO 300 UNITS/3 ML VIAL SUBQ SCH ×4 (07:28→21:32)
[2022-04-23] MEDS: FLUoxetine 20 MG CAPSULE PO SCH (08:33)
[2022-04-23] MEDS: Lactobacillus 1 EACH CAP.SPRINK PO SCH ×2 (08:33→21:31)
[2022-04-23] MEDS: BuPROPion XL (24 HR) 150 MG TABLET PO SCH (08:33)
[2022-04-23] MEDS: Carbidopa/Levodopa ER 50/200 TABLET PO SCH ×2 (08:33→21:31)
[2022-04-23] MEDS: Furosemide 20 MG TABLET PO SCH (08:36)
[2022-04-23] MEDS: DilTIAZem CD (24hr) 180 MG CAP.ER.24H PO SCH (08:39)
[2022-04-23] MEDS: Metoprolol XL (24 HR) Succ 50 MG TAB.ER.24H PO SCH ×2 (08:39→21:31)
[2022-04-23 09:25] LABS: Hematocrit 33.1 % (37.5-50.1); Hemoglobin 10.2 g/dL (12.9-16.9); Mean Corpuscular HGB Conc 30.8 g/dL (31.6-35.5); Mean Corpuscular Hemoglobin 28.3 pg (28.0-33.3); Mean Corpuscular Volume 91.9 fL (83.0-100.0); Mean Platelet Volume 9.9 fL (9.4-12.4); Platelet Count 286 K/mcL (140-400); Red Cell Distribution Width 17.1 % (11.5-14.5); White Blood Count 24.7 K/mcL (4.3-11.1)
[2022-04-23 09:44] LABS: BUN/Creatinine Ratio 32 (6-26); Blood Urea Nitrogen 35 mg/dL (8-23); Calcium 8.3 mg/dL (8.6-10.3); Carbon Dioxide 30 mEq/L (23-29); Chloride 103 mEq/L (98-107); Glucose 191 mg/dL (70-105); Osmolality,Calculated 297 (280-300); Potassium 3.6 mEq/L (3.5-5.1); Sodium 137 mEq/L (136-145); eGFR For African Americans > 60 (> 60); eGFR For Non-African Americans > 60 (> 60)
[2022-04-23] MEDS: Budesonide/Formoterol 160/4.5 1 PUFF INH IH SCH ×2 (09:55→21:49)
[2022-04-23 09:56] LABS: Eosinophils # 0.5 K/mcL (0.0-0.6); Monocytes # 1.7 K/mcL (0.0-1.3); Neutrophils # 22.5 K/mcL (1.6-8.9)
[2022-04-23 09:57] LABS: Hypochromasia Present (Not Present); Platelet Estimate Normal (Normal); Poikilocytosis 1+ (Not Present)
[2022-04-23] MEDS: Piperacillin/Tazobactam 3.375 GM in 0.9 % Sodium Chloride Mini Bag 100 ML IVPB SCH ×2 (12:26→21:31)
[2022-04-23] MEDS: Nystatin POWDER 30 GM BOTTLE TP SCH ×2 (12:29→21:32)
[2022-04-23] MEDS: D5% in Water 1,000 ML IVC PRN (13:19)
[2022-04-23] MEDS: Albuterol 2.5 MG/3 ML NEBULIZER IH PRN ×2 (13:36→19:34)
[2022-04-23] MEDS: Magic Mouthwash 10 ML UD Cup PO SCH (15:45)
[2022-04-23] MEDS: Nystatin SUSP 5 ML UD.LIQ PO SCH ×2 (15:45→21:31)
[2022-04-23] MEDS: *HR* Rivaroxaban 10 MG TABLET PO SCH (18:41)
[2022-04-23] MEDS ORDERED: Insulin DETEMIR 100 UNIT/ML X5UNITS SUBQ SCH (21:00)
[2022-04-23] MEDS ORDERED: QUEtiapine Fumarate 25 MG TABLET PO SCH (23:45)
[2022-04-24] MEDS: Piperacillin/Tazobactam 3.375 GM in 0.9 % Sodium Chloride Mini Bag 100 ML IVPB SCH ×3 (03:22→18:16)
[2022-04-24 03:26] LABS: Eosinophils # 0.3 K/mcL (0.0-0.6); Eosinophils % 1.7 %; Hemoglobin 9.4 g/dL (12.9-16.9); Immature Granulocytes % 0.6 % (0-4); Lymphocytes # 0.7 K/mcL (0.6-4.6); Lymphocytes % 3.2 %; Mean Corpuscular HGB Conc 30.3 g/dL (31.6-35.5); Mean Corpuscular Hemoglobin 28.1 pg (28.0-33.3); Mean Corpuscular Volume 92.8 fL (83.0-100.0); Mean Platelet Volume 10.4 fL (9.4-12.4); Monocytes # 1.6 K/mcL (0.0-1.3); Monocytes % 7.6 %; Neutrophils # 17.9 K/mcL (1.6-8.9); Platelet Count 277 K/mcL (140-400); Red Blood Count 3.34 M/mcL (4.19-5.50); Red Cell Distribution Width 17.3 % (11.5-14.5); Segmented Neutrophils % 86.9 %; White Blood Count 20.6 K/mcL (4.3-11.1)
[2022-04-24] MEDS: Ipratropium/Albuterol Neb 3 ML IH SCH ×2 (03:34→09:12)
[2022-04-24 03:46] LABS: BUN/Creatinine Ratio 25 (6-26); Blood Urea Nitrogen 34 mg/dL (8-23); Calcium 7.8 mg/dL (8.6-10.3); Carbon Dioxide 28 mEq/L (23-29); Chloride 103 mEq/L (98-107); Glucose 150 mg/dL (70-105); Osmolality,Calculated 294 (280-300); Potassium 3.7 mEq/L (3.5-5.1); Sodium 137 mEq/L (136-145); eGFR For African Americans > 60 (> 60); eGFR For Non-African Americans 51 (> 60)
[2022-04-24] MEDS ORDERED: Haloperidol Lactate 5 MG/ML VIAL IVP PRN (07:16)
[2022-04-24] MEDS: Insulin LISPRO 300 UNITS/3 ML VIAL SUBQ SCH ×4 (07:33→20:18)
[2022-04-24] MEDS: Lactobacillus 1 EACH CAP.SPRINK PO SCH ×2 (08:57→20:17)
[2022-04-24] MEDS: DilTIAZem CD (24hr) 180 MG CAP.ER.24H PO SCH (08:57)
[2022-04-24] MEDS: FLUoxetine 20 MG CAPSULE PO SCH (08:57)
[2022-04-24] MEDS: Nystatin SUSP 5 ML UD.LIQ PO SCH ×4 (08:57→20:18)
[2022-04-24] MEDS: Metoprolol XL (24 HR) Succ 50 MG TAB.ER.24H PO SCH ×2 (08:58→20:17)
[2022-04-24] MEDS: Carbidopa/Levodopa ER 50/200 TABLET PO SCH ×2 (08:58→20:18)
[2022-04-24] MEDS: Magic Mouthwash 10 ML UD Cup PO SCH ×3 (08:59→17:11)
[2022-04-24] MEDS: Furosemide 20 MG TABLET PO SCH (08:59)
[2022-04-24] MEDS: BuPROPion XL (24 HR) 150 MG TABLET PO SCH (08:59)
[2022-04-24] MEDS: Nystatin POWDER 30 GM BOTTLE TP SCH ×2 (08:59→20:18)
[2022-04-24] MEDS ORDERED: Vancomycin 1,750 MG/517.5 ML IV.SOLN IVPB ONE (09:00)
[2022-04-24] MEDS: Budesonide/Formoterol 160/4.5 1 PUFF INH IH SCH ×2 (09:14→21:44)
[2022-04-24] MEDS: D5% in Water 1,000 ML IVC PRN (09:17)
[2022-04-24 10:13] LABS: Estimated Average Glucose 180 mg/dl; Hemoglobin A1C 7.9 %
[2022-04-24] MEDS: D5% in Water 1,000 ML IVC SCH ×2 (13:59→19:01)
[2022-04-24 14:31] LABS: Bacteria,Urine Few per hpf (None-Few); Bilirubin,Urine Negative (Negative); Blood,Urine Moderate (Negative); Clarity,Urine Clear (Clear); Color,Urine Yellow (Yellow); Glucose,Urine (UA) Normal (Normal); Ketones,Urine Negative (Negative); Leukocyte Esterase,Urine Small (Negative); Nitrite,Urine Negative (Negative); Protein,Urine 30 mg/dL (Neg-Trace); RBC,Urine 50-100 per hpf (0-3); Specific Gravity,Urine 1.025 (1.010-1.025); Urobilinogen,Urine Normal (Normal)
[2022-04-24] MEDS: Levalbuterol Neb 0.63 MG/3 ML IH SCH ×2 (15:51→21:43)
[2022-04-24] MEDS: *HR* Rivaroxaban 10 MG TABLET PO SCH (17:11)
[2022-04-24] MEDS: QUEtiapine Fumarate 25 MG TABLET PO SCH (20:17)
[2022-04-25] MEDS: Piperacillin/Tazobactam 3.375 GM in 0.9 % Sodium Chloride Mini Bag 100 ML IVPB SCH ×3 (02:41→18:12)
[2022-04-25 03:28] LABS: Basophils % 0.1 %; Eosinophils # 0.6 K/mcL (0.0-0.6); Eosinophils % 3.9 %; Hematocrit 29.5 % (37.5-50.1); Hemoglobin 8.9 g/dL (12.9-16.9); Immature Granulocytes % 0.4 % (0-4); Lymphocytes # 0.6 K/mcL (0.6-4.6); Mean Corpuscular HGB Conc 30.2 g/dL (31.6-35.5); Mean Corpuscular Hemoglobin 27.9 pg (28.0-33.3); Mean Corpuscular Volume 92.5 fL (83.0-100.0); Mean Platelet Volume 10.2 fL (9.4-12.4); Monocytes # 1.3 K/mcL (0.0-1.3); Monocytes % 8.5 %; Neutrophils # 13.1 K/mcL (1.6-8.9); Platelet Count 244 K/mcL (140-400); Red Blood Count 3.19 M/mcL (4.19-5.50); Red Cell Distribution Width 17.2 % (11.5-14.5); Segmented Neutrophils % 83.1 %; White Blood Count 15.8 K/mcL (4.3-11.1)
[2022-04-25 03:41] LABS: Alanine Aminotransferase 3 Units/L (7-52); Albumin 2.8 g/dL (3.5-5.7); Albumin/Globulin Ratio 1.2 (1.1-2.2); Alkaline Phosphatase 89 Units/L (34-104); Aspartate Amino Transferase 10 Units/L (13-39); BUN/Creatinine Ratio 25 (6-26); Bilirubin,Total 0.6 mg/dL (0.3-1.0); Blood Urea Nitrogen 34 mg/dL (8-23); Calcium 7.8 mg/dL (8.6-10.3); Carbon Dioxide 29 mEq/L (23-29); Chloride 103 mEq/L (98-107); Globulin 2.3 g/dL (2.4-3.5); Glucose 156 mg/dL (70-105); Osmolality,Calculated 295 (280-300); Potassium 3.8 mEq/L (3.5-5.1); Sodium 137 mEq/L (136-145); Total Protein 5.1 g/dL (6.4-8.9); eGFR For African Americans > 60 (> 60); eGFR For Non-African Americans 51 (> 60)
[2022-04-25] MEDS: Levalbuterol Neb 0.63 MG/3 ML IH SCH ×3 (03:57→15:30)
[2022-04-25] MEDS: Vancomycin 1,500 MG/265 ML IV.SOLN IVPB SCH (09:42)
[2022-04-25] MEDS: Magic Mouthwash 10 ML UD Cup PO SCH ×3 (09:45→16:56)
[2022-04-25] MEDS: Carbidopa/Levodopa ER 50/200 TABLET PO SCH ×2 (09:46→20:58)
[2022-04-25] MEDS: Nystatin SUSP 5 ML UD.LIQ PO SCH (09:46)
[2022-04-25] MEDS: Metoprolol XL (24 HR) Succ 50 MG TAB.ER.24H PO SCH ×2 (09:46→20:57)
[2022-04-25] MEDS: FLUoxetine 20 MG CAPSULE PO SCH (09:46)
[2022-04-25] MEDS: Furosemide 20 MG TABLET PO SCH (09:46)
[2022-04-25] MEDS: Lactobacillus 1 EACH CAP.SPRINK PO SCH ×2 (09:46→20:58)
[2022-04-25] MEDS: BuPROPion XL (24 HR) 150 MG TABLET PO SCH (09:46)
[2022-04-25] MEDS: DilTIAZem CD (24hr) 180 MG CAP.ER.24H PO SCH (09:47)
[2022-04-25] MEDS: Nystatin POWDER 30 GM BOTTLE TP SCH ×2 (09:47→21:12)
[2022-04-25] MEDS: Insulin LISPRO 300 UNITS/3 ML VIAL SUBQ SCH ×4 (09:47→20:59)
[2022-04-25] MEDS: Budesonide/Formoterol 160/4.5 1 PUFF INH IH SCH ×2 (10:42→20:10)
[2022-04-25] MEDS: *HR* Rivaroxaban 10 MG TABLET PO SCH (16:56)
[2022-04-25] MEDS: Ipratropium/Albuterol Neb 3 ML IH SCH ×2 (20:10→22:49)
[2022-04-25] MEDS: *HR* OxyCODONE Immed Rel 5 MG TABLET PO PRN (20:57)
[2022-04-25] MEDS: Insulin DETEMIR 100 UNIT/ML X5UNITS SUBQ SCH (20:59)
[2022-04-25] MEDS: QUEtiapine Fumarate 25 MG TABLET PO SCH (20:59)
[2022-04-26] MEDS: Ipratropium/Albuterol Neb 3 ML IH SCH ×6 (03:03→23:21)
[2022-04-26] MEDS: Piperacillin/Tazobactam 3.375 GM in 0.9 % Sodium Chloride Mini Bag 100 ML IVPB SCH ×3 (04:03→21:04)
[2022-04-26 05:00] LABS: Basophils % 0.1 %; Eosinophils # 0.7 K/mcL (0.0-0.6); Eosinophils % 5.2 %; Hematocrit 29.3 % (37.5-50.1); Hemoglobin 8.9 g/dL (12.9-16.9); Immature Granulocytes % 0.4 % (0-4); Lymphocytes # 0.7 K/mcL (0.6-4.6); Lymphocytes % 4.7 %; Mean Corpuscular HGB Conc 30.4 g/dL (31.6-35.5); Mean Corpuscular Hemoglobin 27.8 pg (28.0-33.3); Mean Corpuscular Volume 91.6 fL (83.0-100.0); Mean Platelet Volume 10.1 fL (9.4-12.4); Monocytes # 1.2 K/mcL (0.0-1.3); Monocytes % 8.3 %; Neutrophils # 11.5 K/mcL (1.6-8.9); Platelet Count 237 K/mcL (140-400); Red Cell Distribution Width 17.1 % (11.5-14.5); Segmented Neutrophils % 81.3 %; White Blood Count 14.1 K/mcL (4.3-11.1)
[2022-04-26 05:19] LABS: Albumin 2.8 g/dL (3.5-5.7); Albumin/Globulin Ratio 1.1 (1.1-2.2); Bilirubin,Total 0.7 mg/dL (0.3-1.0); Calcium 7.9 mg/dL (8.6-10.3); Globulin 2.5 g/dL (2.4-3.5); Potassium 3.5 mEq/L (3.5-5.1); Total Protein 5.3 g/dL (6.4-8.9)
[2022-04-26] MEDS: Budesonide/Formoterol 160/4.5 1 PUFF INH IH SCH ×2 (07:29→20:21)
[2022-04-26] MEDS: Magic Mouthwash 10 ML UD Cup PO SCH ×3 (08:57→17:15)
[2022-04-26] MEDS: BuPROPion XL (24 HR) 150 MG TABLET PO SCH (08:57)
[2022-04-26] MEDS: Metoprolol XL (24 HR) Succ 50 MG TAB.ER.24H PO SCH ×2 (08:57→21:11)
[2022-04-26] MEDS: DilTIAZem CD (24hr) 180 MG CAP.ER.24H PO SCH (08:57)
[2022-04-26] MEDS: Lactobacillus 1 EACH CAP.SPRINK PO SCH ×2 (08:57→21:14)
[2022-04-26] MEDS: Carbidopa/Levodopa ER 50/200 TABLET PO SCH ×2 (08:57→21:12)
[2022-04-26] MEDS: polyethylene glycoL 3350 17 GM POWD.PACK PO SCH (08:57)
[2022-04-26] MEDS: FLUoxetine 20 MG CAPSULE PO SCH (08:57)
[2022-04-26] MEDS: Furosemide 20 MG TABLET PO SCH (08:57)
[2022-04-26] MEDS: Nystatin POWDER 30 GM BOTTLE TP SCH ×2 (08:58→22:45)
[2022-04-26] MEDS: Vancomycin 1,500 MG/265 ML IV.SOLN IVPB SCH (08:58)
[2022-04-26] MEDS: Insulin LISPRO 300 UNITS/3 ML VIAL SUBQ SCH ×4 (09:00→21:22)
[2022-04-26] MEDS: *HR* Rivaroxaban 10 MG TABLET PO SCH (17:15)
[2022-04-26] MEDS ORDERED: *HR* LORazepam 2 MG/ML VIAL IVP ONE (19:29)
[2022-04-26 20:08] LABS: ABG Base Excess 2 mEq/L (-2 to 3); ABG HCO3 25 mEq/L (21-27); ABG Oxygen Saturation 100 % (95-98); ABG PCO2 33 mmHg (35-45); ABG PH 7.48 pH Units (7.32-7.45); ABG PO2 217 mmHg (85-104); ABG TCO2 26 mEq/L (20-26); Blood Gas Modality CPAP/PS
[2022-04-26] MEDS: QUEtiapine Fumarate 25 MG TABLET PO SCH (21:12)
[2022-04-26] MEDS: Insulin DETEMIR 100 UNIT/ML X5UNITS SUBQ SCH (21:22)
[2022-04-26] MEDS ORDERED: *HR* Metoprolol 5 MG/5 ML VIAL IVP ONE (22:26)
[2022-04-27 03:30] LABS: Basophils % 0.2 %; Eosinophils # 0.7 K/mcL (0.0-0.6); Eosinophils % 5.6 %; Hematocrit 28.3 % (37.5-50.1); Hemoglobin 8.5 g/dL (12.9-16.9); Immature Granulocytes % 0.4 % (0-4); Lymphocytes # 0.6 K/mcL (0.6-4.6); Lymphocytes % 4.8 %; Mean Corpuscular Hemoglobin 27.8 pg (28.0-33.3); Mean Corpuscular Volume 92.5 fL (83.0-100.0); Mean Platelet Volume 10.3 fL (9.4-12.4); Monocytes # 1.2 K/mcL (0.0-1.3); Monocytes % 9.6 %; Neutrophils # 10.2 K/mcL (1.6-8.9); Platelet Count 216 K/mcL (140-400); Red Blood Count 3.06 M/mcL (4.19-5.50); Red Cell Distribution Width 17.2 % (11.5-14.5); Segmented Neutrophils % 79.4 %; White Blood Count 12.9 K/mcL (4.3-11.1)
[2022-04-27] MEDS: Piperacillin/Tazobactam 3.375 GM in 0.9 % Sodium Chloride Mini Bag 100 ML IVPB SCH ×3 (03:43→18:58)
[2022-04-27 03:46] LABS: Alanine Aminotransferase < 3 Units/L (7-52); Albumin 2.7 g/dL (3.5-5.7); Alkaline Phosphatase 72 Units/L (34-104); Aspartate Amino Transferase 12 Units/L (13-39); BUN/Creatinine Ratio 26 (6-26); Bilirubin,Direct 0.2 mg/dL (0.0-0.2); Bilirubin,Indirect 0.4 mg/dL (0.0-1.0); Bilirubin,Total 0.6 mg/dL (0.3-1.0); Blood Urea Nitrogen 31 mg/dL (8-23); Calcium 7.9 mg/dL (8.6-10.3); Carbon Dioxide 28 mEq/L (23-29); Chloride 105 mEq/L (98-107); Globulin 2.6 g/dL (2.4-3.5); Glucose 122 mg/dL (70-105); Magnesium 1.9 mg/dL (1.6-2.6); Osmolality,Calculated 294 (280-300); Potassium 3.8 mEq/L (3.5-5.1); Sodium 138 mEq/L (136-145); Total Protein 5.3 g/dL (6.4-8.9)
[2022-04-27] MEDS: Ipratropium/Albuterol Neb 3 ML IH SCH ×7 (04:09→23:22)
[2022-04-27] MEDS ORDERED: *HR* LORazepam 2 MG/ML VIAL IVP ONE (04:30)
[2022-04-27] MEDS ORDERED: Calcium Gluconate 1gm/50mL 1 GM/50 ML BAG IVPB ONE (04:34)
[2022-04-27 05:11] LABS: Bilirubin,Urine Negative (Negative); Blood,Urine Small (Negative); Clarity,Urine Clear (Clear); Color,Urine Yellow (Yellow); Glucose,Urine (UA) Normal (Normal); Ketones,Urine Negative (Negative); Leukocyte Esterase,Urine Trace (Negative); Nitrite,Urine Negative (Negative); Protein,Urine 50 mg/dL (Neg-Trace); RBC,Urine 15-30 per hpf (0-3); Specific Gravity,Urine > 1.030 (1.010-1.025); Squamous Epithelial Cell,Urine Few per hpf (None-Few); Urobilinogen,Urine Normal (Normal)
[2022-04-27 07:53] LABS: Adenovirus Not Detected (Not Detect); Bordetella Pertussis Not Detected (Not Detect); Chlamydophila pneumoniae Not Detected (Not Detect); Coronavirus 229E Not Detected (Not Detect); Coronavirus HKU1 Not Detected (Not Detect); Coronavirus NL63 Not Detected (Not Detect); Coronavirus OC43 Not Detected (Not Detect); Human Metapneumovirus Not Detected (Not Detect); Human Rhinovirus/Enterovirus Not Detected (Not Detect); Influenza A Subtype 2009 H1 Not Detected (Not Detect); Influenza B Not Detected (Not Detect); Mycoplasma pneumoniae Not Detected (Not Detect); Parainfluenza Virus 1 Not Detected (Not Detect); Parainfluenza Virus 2 Not Detected (Not Detect); Parainfluenza Virus 3 Not Detected (Not Detect); Parainfluenza Virus 4 Not Detected (Not Detect); Respiratory Syncytial Virus Not Detected (Not Detect); SARS-CoV-2 Not Detected (Not Detect)
[2022-04-27] MEDS: Budesonide/Formoterol 160/4.5 1 PUFF INH IH SCH ×2 (07:53→20:02)
[2022-04-27] MEDS: DilTIAZem CD (24hr) 180 MG CAP.ER.24H PO SCH (08:26)
[2022-04-27] MEDS: Insulin LISPRO 300 UNITS/3 ML VIAL SUBQ SCH ×4 (08:26→20:56)
[2022-04-27] MEDS: Lactobacillus 1 EACH CAP.SPRINK PO SCH ×2 (08:27→20:07)
[2022-04-27] MEDS: Carbidopa/Levodopa ER 50/200 TABLET PO SCH ×2 (08:27→20:07)
[2022-04-27] MEDS: Metoprolol XL (24 HR) Succ 50 MG TAB.ER.24H PO SCH ×2 (08:27→20:07)
[2022-04-27] MEDS: Furosemide 20 MG TABLET PO SCH (08:27)
[2022-04-27] MEDS: FLUoxetine 20 MG CAPSULE PO SCH (08:27)
[2022-04-27] MEDS: BuPROPion XL (24 HR) 150 MG TABLET PO SCH (08:27)
[2022-04-27] MEDS: polyethylene glycoL 3350 17 GM POWD.PACK PO SCH (08:28)
[2022-04-27] MEDS: Magic Mouthwash 10 ML UD Cup PO SCH ×3 (08:28→16:35)
[2022-04-27] MEDS: Nystatin POWDER 30 GM BOTTLE TP SCH ×2 (08:28→21:23)
[2022-04-27] MEDS: Vancomycin 2,000 MG/520 ML IV.SOLN IVPB SCH (10:28)
[2022-04-27] MEDS: QUEtiapine Fumarate 25 MG TABLET PO SCH ×2 (10:56→20:07)
[2022-04-27] MEDS: *HR* OxyCODONE Immed Rel 5 MG TABLET PO PRN (14:06)
[2022-04-27] MEDS: *HR* Rivaroxaban 10 MG TABLET PO SCH (16:35)
[2022-04-27] MEDS: Morphine Sulfate Oral CONC 10 MG/0.5 ML ORAL.SYG SL PRN (20:05)
[2022-04-27] MEDS: Insulin DETEMIR 100 UNIT/ML X5UNITS SUBQ SCH (20:55)
[2022-04-28] MEDS: Morphine Sulfate Oral CONC 10 MG/0.5 ML ORAL.SYG SL PRN ×2 (00:29→11:20)
[2022-04-28] MEDS: Ipratropium/Albuterol Neb 3 ML IH SCH ×2 (04:14→07:37)
[2022-04-28] MEDS: Piperacillin/Tazobactam 3.375 GM in 0.9 % Sodium Chloride Mini Bag 100 ML IVPB SCH ×2 (04:15→11:21)
[2022-04-28 05:04] LABS: Basophils % 0.2 %; Eosinophils # 0.8 K/mcL (0.0-0.6); Eosinophils % 5.6 %; Hematocrit 27.5 % (37.5-50.1); Hemoglobin 8.2 g/dL (12.9-16.9); Immature Granulocytes % 0.4 % (0-4); Lymphocytes # 0.6 K/mcL (0.6-4.6); Lymphocytes % 3.9 %; Mean Corpuscular HGB Conc 29.8 g/dL (31.6-35.5); Mean Corpuscular Hemoglobin 27.4 pg (28.0-33.3); Mean Platelet Volume 10.3 fL (9.4-12.4); Monocytes # 1.3 K/mcL (0.0-1.3); Monocytes % 8.7 %; Neutrophils # 11.7 K/mcL (1.6-8.9); Platelet Count 211 K/mcL (140-400); Red Blood Count 2.99 M/mcL (4.19-5.50); Red Cell Distribution Width 17.3 % (11.5-14.5); Segmented Neutrophils % 81.2 %; White Blood Count 14.4 K/mcL (4.3-11.1)
[2022-04-28 05:23] LABS: Magnesium 1.8 mg/dL (1.6-2.6); Potassium 3.8 mEq/L (3.5-5.1)
[2022-04-28] MEDS: Insulin LISPRO 300 UNITS/3 ML VIAL SUBQ SCH ×3 (07:10→16:42)
[2022-04-28] MEDS: Budesonide/Formoterol 160/4.5 1 PUFF INH IH SCH (07:37)
[2022-04-28] MEDS ORDERED: Acetaminophen 325 MG TABLET PO PRN (08:36)
[2022-04-28] MEDS ORDERED: Furosemide 40 MG/4 ML VIAL IVP ONE (08:37)
[2022-04-28] MEDS ORDERED: Potassium Chloride Elixir 20 MEQ/15 ML UDC PO ONE (08:42)
[2022-04-28] MEDS: Magic Mouthwash 10 ML UD Cup PO SCH ×3 (08:52→16:42)
[2022-04-28] MEDS: Lactobacillus 1 EACH CAP.SPRINK PO SCH (08:52)
[2022-04-28] MEDS: FLUoxetine 20 MG CAPSULE PO SCH (08:53)
[2022-04-28] MEDS: QUEtiapine Fumarate 25 MG TABLET PO SCH (08:53)
[2022-04-28] MEDS: polyethylene glycoL 3350 17 GM POWD.PACK PO SCH (08:53)
[2022-04-28] MEDS: Carbidopa/Levodopa ER 50/200 TABLET PO SCH (08:53)
[2022-04-28] MEDS: BuPROPion XL (24 HR) 150 MG TABLET PO SCH (08:53)
[2022-04-28] MEDS: Nystatin POWDER 30 GM BOTTLE TP SCH (08:54)
[2022-04-28] MEDS ORDERED: Metoprolol XL (24 HR) Succ 50 MG TAB.ER.24H PO SCH (09:00)
[2022-04-28 11:18] VITALS: BP 115/65; PULSE 105; TEMP 97.8
[2022-04-28] MEDS: Vancomycin 2,000 MG/520 ML IV.SOLN IVPB SCH (11:21)
[2022-04-28] MEDS: Ipratropium Neb 0.5 MG NEBULIZER IH SCH ×2 (11:38→16:05)
[2022-04-28] MEDS: Levalbuterol Neb 0.63 MG/3 ML IH SCH ×2 (11:38→16:05)
[2022-04-28 13:17] VITALS: O2SAT 91
[2022-04-28] MEDS: *HR* LORazepam 2 MG/ML VIAL IVP PRN ×2 (13:52→17:46)
[2022-04-28] MEDS ORDERED: Morphine Sulfate 2 MG/ML SYRINGE IVP PRN (14:36)
[2022-04-28] MEDS ORDERED: Morphine Sulfate Oral CONC 10 MG/0.5 ML ORAL.SYG SL PRN (14:39)
[2022-04-28] MEDS: *HR* Rivaroxaban 10 MG TABLET PO SCH (16:42)
[2022-04-29] MEDS ORDERED: Vancomycin 2,000 MG/520 ML IV.SOLN IVPB SCH (11:00)
== END 2022-04-28 18:45 | disposition hospice, home (50) | DRG 871 ==
LOC: 2ANU → SUATTDRO 21:39
PROVIDERS: ADMIT Internal Medicine; ATTEND Pharmacist